=== PATIENT | female | born 1945 | race Caucasian/White ===

== ENCOUNTER → 2017-08-25 11:58 | Outpatient (CLI) | payer MEDICARE, OTHER, SELFPAY ==
[2017-08-25 13:00] LABS: Anion Gap 6 (5-15); BUN 33 mg/dL (7-18); BUN/Creat Ratio 23.6 RATIO (10-20); Calcium,Total 8.7 mg/dL (8.5-10.1); Chloride 104 mmol/L (98-107); EST Glomerular Filtration Rate 39 mL/min (>60); Est Glom Filt Rate - Afr Amer 47 mL/min (>60); Glucose 52 mg/dL (74-106); Magnesium 2.2 mg/dL (1.6-2.6); Potassium 4.4 mmol/L (3.5-5.1); Sodium Level 139 mmol/L (136-145)
== END ==
PROVIDERS: Family Provider Family Medicine; PCP Family Medicine; Visit Provider Physician Assistant Medical
DX: I25.10 Atherosclerotic heart disease of native coronary artery without angina pectoris (principal); I10 Essential (primary) hypertension; R25.2 Cramp and spasm
CPT/HCPCS: 36415; 80048; 83735

== ENCOUNTER → 2018-03-30 07:37 | Outpatient (CLI) | payer MEDICARE, OTHER, SELFPAY ==
[2018-03-30 08:43] LABS: AST(SGOT) 30 U/L (15-37); Alanine Aminotransfer ALT/SGPT 34 U/L (13-56); Albumin, Serum 3.6 g/dL (3.2-5.0); Alkaline Phosphatase 54 U/L (45-117); Cholesterol 119 mg/dL (200); Globulin 3.6 g/dL (2.2-4.2); High Density Lipoprotein 34 mg/dL; Protein, Total 7.2 g/dL (6.4-8.2); Triglycerides 209 mg/dL; Very Low Density Lipoprotein 42 mg/dL (5-40)
== END ==
PROVIDERS: Referring Provider Physician Assistant Medical; Visit Provider Physician Assistant Medical
DX: E78.5 Hyperlipidemia, unspecified (principal); Z79.899 Other long term (current) drug therapy
CPT/HCPCS: 36415; 80061; 80076

== ENCOUNTER → 2018-11-02 08:06 | Outpatient (CLI) | payer MEDICARE, OTHER, SELFPAY ==
[2018-10-20 12:55] VITALS: BMI 36.2
[2018-11-02 09:33] LABS: AST(SGOT) 28 U/L (15-37); Alanine Aminotransfer ALT/SGPT 39 U/L (13-56); Albumin, Serum 3.5 g/dL (3.2-5.0); Alkaline Phosphatase 58 U/L (45-117); Bilirubin, Direct 0.07 mg/dL (0.00-0.30); Cholesterol 125 mg/dL (200); High Density Lipoprotein 41 mg/dL; Protein, Total 7.5 g/dL (6.4-8.2); Triglycerides 167 mg/dL; Very Low Density Lipoprotein 33 mg/dL (5-40)
== END ==
PROVIDERS: Referring Provider Physician Assistant Medical; Visit Provider Physician Assistant Medical
DX: E78.5 Hyperlipidemia, unspecified (principal)
CPT/HCPCS: 36415; 80061; 80076

== ENCOUNTER → 2019-01-15 12:56 | Outpatient (CLI) | payer MEDICARE, OTHER, SELFPAY ==
[2018-10-20 12:55] VITALS: BMI 36.2
--- NOTE | 2019-01-15 12:59 | BI_ITS ---
MAMMOGRAPHY - BILATERAL SCREENING 3-D TOMOSYNTHESIS REASON FOR EXAM: Female, 73 years old. Bilateral Screening 3-D tomosynthesis PERTINENT HISTORY: No significant family history. TECHNIQUE: 2-D mammograms and 3-D Tomosynthesis of the breast (s) were performed. CAD was performed. COMPARISON: None. FINDINGS: The breast composition is almost entirely fat. Scattered benign calcifications are seen. No dense spiculated masses or suspicious microcalcifications are identified. No architectural distortion is identified. There is no skin thickening or retraction. There has been no significant change since the prior study. BI/SCREEN MAMM (CAD) W/ZACARIAS BILAT IMPRESSION: No mammographic signs of malignancy. Routine yearly mammograms recommended. ASSESSMENT CATEGORY: BIRADS Category 1: Negative. A letter regarding these results will be sent to the patient by the facility within 30 days. FOLLOW UP RECOMMENDATION: Yearly follow up mammogram recommended. (A) Approximately 10% of breast cancers are not detected by mammography. A normal mammogram should not delay biopsy of a clinically suspicious abnormality. Electronically Signed: Lavelle Cyr MD at 14:08 EDT , Service support ,
== END ==
DX: Z12.31 Encounter for screening mammogram for malignant neoplasm of breast (principal)
CPT/HCPCS: 77063; 77067

== ENCOUNTER → 2019-05-10 08:02 | Outpatient (CLI) | payer MEDICARE, OTHER, SELFPAY ==
[2018-10-20 12:55] VITALS: BMI 36.2
[2019-05-10 08:53] LABS: Hematocrit 42.3 % (37-47); Hemoglobin 13.6 g/dL (12.0-15.0); Mean Corp Hgb Conc 32.2 g/dL (32-36); Mean Corpuscular Hgb 29.3 pg (27.0-32.0); Mean Corpuscular Volume 91.2 fL (81-99); Mean Platelet Vol. 10.3 fl (6.2-12.0); Platelet Count 198 K/mm3 (150-450); RBC Distribution Width CV 14.2 % (11.6-14.6); RBC Distribution Width SD 47.3 fl (35.1-43.9); Red Blood Count 4.64 M/mm3 (4.2-5.4); White Blood Count 6.9 K/mm3 (4.4-11.0)
[2019-05-10 09:29] LABS: AST(SGOT) 24 U/L (15-37); Alanine Aminotransfer ALT/SGPT 33 U/L (13-56); Albumin, Serum 3.4 g/dL (3.2-5.0); Alkaline Phosphatase 54 U/L (45-117); Anion Gap 7 (5-15); BUN 29 mg/dL (7-18); BUN/Creat Ratio 21.5 RATIO (10-20); Bilirubin, Direct 0.09 mg/dL (0.00-0.30); Calcium,Total 8.8 mg/dL (8.5-10.1); Chloride 104 mmol/L (98-107); Cholesterol 115 mg/dL (200); Creatinine, Serum 1.35 mg/dL (0.55-1.02); EST Glomerular Filtration Rate 41 mL/min (>60); Est Glom Filt Rate - Afr Amer 49 mL/min (>60); Globulin 3.9 g/dL (2.2-4.2); Glucose 98 mg/dL (74-106); High Density Lipoprotein 33 mg/dL; Phosphorus 3.4 mg/dL (2.5-4.9); Protein, Total 7.3 g/dL (6.4-8.2); Sodium Level 141 mmol/L (136-145); Thyroid Stim Hormone (TSH) 3.63 uIU/mL (0.358-3.74); Triglycerides 177 mg/dL; Very Low Density Lipoprotein 35 mg/dL (5-40)
[2019-05-10 11:00] LABS: Vitamin D,25 Hydroxy 38.8 ng/mL (29.95-100.01)
== END ==
PROVIDERS: Family Provider Student in an Organized Health Care Education/Training Program; PCP Student in an Organized Health Care Education/Training Program; Referring Provider Nurse Practitioner Family; Visit Provider Nurse Practitioner Family
DX: I12.9 Hypertensive chronic kidney disease with stage 1 through stage 4 chronic kidney disease, or unspecified chronic kidney disease (principal); N18.3 Chronic kidney disease, stage 3 (moderate); E78.5 Hyperlipidemia, unspecified; R53.83 Other fatigue
CPT/HCPCS: 36415; 80048; 80061; 80076; 82306; 84100; 84443; 85027

== ENCOUNTER → 2019-11-09 07:35 | Outpatient (CLI) | payer MEDICARE, OTHER, SELFPAY ==
[2019-05-11 10:52] VITALS: BMI 37.6
[2019-11-09 09:22] LABS: AST(SGOT) 27 U/L (15-37); Alanine Aminotransfer ALT/SGPT 37 U/L (13-56); Albumin, Serum 3.5 g/dL (3.2-5.0); Alkaline Phosphatase 62 U/L (45-117); Cholesterol 122 mg/dL (200); Globulin 4.1 g/dL (2.2-4.2); High Density Lipoprotein 32 mg/dL; Protein, Total 7.6 g/dL (6.4-8.2); Triglycerides 239 mg/dL; Very Low Density Lipoprotein 48 mg/dL (5-40)
== END ==
PROVIDERS: PCP Student in an Organized Health Care Education/Training Program; Referring Provider Nurse Practitioner Family; Visit Provider Nurse Practitioner Family
DX: E78.00 Pure hypercholesterolemia, unspecified (principal); E78.5 Hyperlipidemia, unspecified
CPT/HCPCS: 36415; 80061; 80076

== ENCOUNTER → 2019-11-16 12:57 | Outpatient (CLI) | payer MEDICARE, OTHER, SELFPAY ==
[2019-05-11 10:52] VITALS: BMI 37.6
[2019-11-16 13:55] LABS: Hematocrit 43.6 % (37-47); Mean Corp Hgb Conc 32.1 g/dL (32-36); Mean Corpuscular Hgb 29.4 pg (27.0-32.0); Mean Corpuscular Volume 91.4 fL (81-99); Mean Platelet Vol. 10.1 fl (6.2-12.0); Platelet Count 226 K/mm3 (150-450); RBC Distribution Width CV 13.7 % (11.6-14.6); RBC Distribution Width SD 46.2 fl (35.1-43.9); Red Blood Count 4.77 M/mm3 (4.2-5.4); White Blood Count 7.8 K/mm3 (4.4-11.0)
[2019-11-16 14:00] LABS: Protein, Urine (Random) < 6.0 mg/dL (<11.9); Protein:Creat Ratio 95 mg/g CRE (0-200)
[2019-11-16 14:18] LABS: Albumin, Serum 3.3 g/dL (3.2-5.0); BUN 29 mg/dL (7-18); Calcium,Total 8.8 mg/dL (8.5-10.1); Chloride 102 mmol/L (98-107); Creatinine, Serum 1.26 mg/dL (0.55-1.02); EST Glomerular Filtration Rate 44 mL/min (>60); Est Glom Filt Rate - Afr Amer 53 mL/min (>60); Glucose 103 mg/dL (74-106); Phosphorus 3.6 mg/dL (2.5-4.9); Potassium 4.1 mmol/L (3.5-5.1); Sodium Level 138 mmol/L (136-145)
[2019-11-16 14:23] LABS: Vitamin D,25 Hydroxy 44.4 ng/mL
== END ==
PROVIDERS: PCP Student in an Organized Health Care Education/Training Program; Referring Provider Student in an Organized Health Care Education/Training Program; Visit Provider Student in an Organized Health Care Education/Training Program
DX: N18.3 Chronic kidney disease, stage 3 (moderate) (principal)
CPT/HCPCS: 36415; 80069; 82306; 82570; 83970; 84156; 85027

== ENCOUNTER → 2019-11-24 10:07 | Outpatient (CLI) | payer MEDICARE, OTHER, SELFPAY ==
[2019-05-11 10:52] VITALS: BMI 37.6
--- NOTE | 2019-11-24 10:26 | MRI_ITS ---
STUDY: MRI LUMBAR SPINE WITHOUT CONTRAST REASON FOR EXAM: Female, 74 years old. ddd, radiculopathy, RIGHT HIP PAIN and gt; LEFT PAIN TECHNIQUE: Standardized fat and water weighted pulse sequences were obtained in the sagittal and axial planes. COMPARISON: CT abdomen and pelvis with coronal and sagittal reconstructions 01/06/2017. FINDINGS: T9-T10: (Sagittal only). Normal endplates. Normal disc height and morphology. Normal central canal and bilateral intervertebral neural foramina. T10-T11: (Sagittal only). Normal endplates. Normal disc height and morphology. Normal central canal and bilateral lateral intervertebral neural foramina. T11-T12: (Sagittal only). Normal endplates. Normal disc height and morphology. Normal central canal and bilateral intervertebral neural foramina. T12-L1: (Sagittal only). Normal endplates. Normal disc height and morphology. Normal central canal and bilateral intervertebral neural foramina. Normal lumbar lordosis. There is no substantial scoliosis. Normal conus medullaris that terminates at the lower T12 vertebral body level. L1-2: Anterior marginal spurs. Modic type II degenerative vertebral marrow fatty changes underneath the vertebral endplates. Mild degenerative retrolisthesis of L1 on L2. Pronounced disc space height narrowing. Mild central canal stenosis with an AP canal diameter of 10 mm. Mild stenosis of the bilateral lateral recesses. Moderate bilateral degenerative facet arthropathy. Normal bilateral intervertebral neural foramina. Prominent right renal cyst is visible at this level. L2-3: Normal endplates. Moderate disc space height narrowing. Mild degenerative retrolisthesis of L2 on L3. Moderate central canal stenosis with an AP central diameter is 7.5 mm. Mild dorsal epidural lipomatosis. Normal bilateral lateral recesses. Moderately pronounced right degenerative facet arthropathy. Moderate left degenerative facet arthropathy. Mild stenosis of the right intervertebral neural foramen. Normal left intervertebral neural foramen. L3-4: Mild Modic type I degenerative vertebral marrow edema underneath the vertebral endplates. Moderate disc space height narrowing. Prominent posterior annular bulging disc. Moderate central canal stenosis with an AP canal diameter is 7.2 mm. Normal bilateral lateral recesses. Moderate bilateral degenerative facet arthropathy with fluid distention of the facet joints. Mild stenosis of the bilateral intervertebral neural foramina. L4-5: Modic type II degenerative vertebral marrow fatty changes underneath the vertebral endplates. Mild disc space height narrowing. Normal central canal and bilateral lateral recesses. Mild bilateral degenerative facet arthropathy. Normal bilateral intervertebral neural foramina. L5-S1: Ankylosis of the vertebral bodies. Grade 2 anterolisthesis of L5 on S1 secondary to bilateral L5 pars defects are unchanged. Moderately pronounced central canal stenosis with an AP canal diameter of 5.3 mm. Normal bilateral lateral recesses. Moderate bilateral degenerative facet arthropathy. Severe stenosis of the bilateral intervertebral neural foramina. Normal visualized sacral ala. Normal visualized paraspinous soft tissue structures. MRI/Spine Lumbar (Routine) IMPRESSION: 1. Severe stenosis of the bilateral L5-S1 intervertebral neural foramina, grade 2 anterolisthesis of L5 on S1, bilateral L5 pars defects, ankylosis of the vertebral bodies and moderately pronounced central canal stenosis with an AP canal diameter of 5.3 mm. 2. Moderate central canal stenosis at L3-L4 disc level with an AP canal diameter 7.2 mm, moderate disc space height narrowing, moderate bilateral degenerative facet arthropathy with fluid distention of the facet joints, mild stenosis of the bilateral intervertebral neural foramina and mild Modic type I degenerative vertebral marrow edema underneath the vertebral endplates. 3. Moderate central canal stenosis at L2-L3 disc level with an AP canal diameter of 7.5 mm, mild degenerative retrolisthesis of L2 on L3, moderately pronounced right degenerative facet arthropathy and mild stenosis of the right intervertebral neural foramen. 4. Mild central canal stenosis at the L1-L2 disc level with an AP canal diameter of 10 mm, mild degenerative retrolisthesis of L1 on L2, pronounced L1-L2 disc space height narrowing and moderate bilateral degenerative facet arthropathy. 5. No MRI evidence of lumbar extruded disc fragment. 6. Prominent right renal cyst. 7. No significant interval change when compared to CT of the abdomen and pelvis without contrast 01/06/2017. Electronically Signed: Yobani Mayers MD at 12:20 EDT , Service support ,
== END ==
PROVIDERS: PCP Student in an Organized Health Care Education/Training Program; Referring Provider Anesthesiology Pain Medicine; Visit Provider Anesthesiology Pain Medicine
DX: M51.37 Other intervertebral disc degeneration, lumbosacral region (principal); M54.17 Radiculopathy, lumbosacral region
CPT/HCPCS: 72148

== ENCOUNTER → 2019-12-13 05:55 | Outpatient (CLI) | payer MEDICARE, OTHER, SELFPAY ==
[2019-05-11 10:52] VITALS: BMI 37.6
--- NOTE | 2019-12-13 11:36 | STRESSREP ---
Stress Test Report Pharmacologic myocardial perfusion stress test. 74-year-old lady with a history coronary artery disease status post coronary artery bypass surgery. Stress protocol: Resting EKG demonstrates sinus rhythm with a rate of 61 bpm and a right bundle branch block. 0.4 mg of regadenoson was infused per usual protocol followed by Intravenous saline flush injection continuous EKG monitoring was performed. The maximum heart rate attained was 88 bpm which was 60% of maximum predicted heart rate the maximum workload was 1 metabolic equivalent. At rest there were no ST or T wave changes noted to suggest abnormal flow reserve at peak infusion nonspecific ST-T wave changes were noted with no meet the criteria for ischemia. The resting blood pressure was 134/68 with a final blood pressure of 138/76. Myocardial perfusion protocol. 11.8 mCi of technetium 99m sestamibi was injected at rest. 0.4 mg of regadenoson was infused per usual protocol peak infusion 36.0 mCi of technetium 99m sestamibi was injected stress images were obtained stress and rest images were reconstructed and compared in the short axis vertical long horizontal long axis. Gated images were also obtained Perfusion SPECT analysis: Review of the images demonstrate normal uptake of tracer noted in all areas of the myocardium. The rest images similar demonstrate normal uptake of tracer noted in all areas of the myocardium. No reversibility is noted suggest ischemia no previous infarct is noted. Gated SPECT analysis: The gated ejection fraction is 84%. Conclusion: Normal pharmacologic myocardial perfusion stress test. Preserved ejection fraction.
== END ==
PROVIDERS: PCP Student in an Organized Health Care Education/Training Program; Referring Provider Internal Medicine Cardiovascular Disease; Visit Provider Internal Medicine Cardiovascular Disease
DX: R07.9 Chest pain, unspecified (principal); I25.10 Atherosclerotic heart disease of native coronary artery without angina pectoris; Z95.1 Presence of aortocoronary bypass graft; I10 Essential (primary) hypertension; E78.5 Hyperlipidemia, unspecified; I45.2 Bifascicular block
CPT/HCPCS: 78452; 93017; A9500; A4216; J2785

== ENCOUNTER → 2020-02-07 | Outpatient (CLI) | payer MEDICARE, OTHER, SELFPAY ==
[2019-05-11 10:52] VITALS: BMI 37.6
--- NOTE | 2020-02-07 07:43 | US_ITS ---
STUDY: ULTRASOUND TRANSVAGINAL CLINICAL: Female, 74 years old. Pelvic pain and fullness TECHNIQUE: Transvaginal COMPARISON: None. FINDINGS: Normal uterine size measuring 8.7 cm in maximal craniocaudal dimension. Grad Intern notes at least 4 fibroids. Some are calcified. The largest measures 2.5 x 2.4 x 1.4 cm. Normal endometrial thickness measuring 6.7 mm. There are no endometrial masses, and there is no fluid in the endometrial cavity. This is abnormal and needs further investigation with biopsy to exclude endometrial carcinoma. Normal uterine cervix. Neither ovary visualized. There is no free fluid in the pelvis. US/Transvaginal Non- IMPRESSION: Abnormally thickened endometrium at 6.7 mm. Biopsy is recommended for further evaluation Grad Intern notes at least 4 uterine fibroids. Largest measures 2.5 x 2.4 x 1.4 cm. No suspicious cystic mass or free fluid Electronically Signed: Lavelle Cyr MD at 10:22 EDT , Service support ,
== END | disposition home or self-care (01) ==
LOC: US 07:41
PROVIDERS: PCP Student in an Organized Health Care Education/Training Program; Referring Provider Student in an Organized Health Care Education/Training Program; Visit Provider Student in an Organized Health Care Education/Training Program
DX: R22.9 Localized swelling, mass and lump, unspecified (principal)
CPT/HCPCS: 76830

== ENCOUNTER 2020-04-10 12:41 | Day surgery (SDC) | payer MEDICARE, OTHER, SELFPAY ==
[2019-05-11 10:52] VITALS: BMI 37.6
[2020-04-10] VITALS (7 sets, daily range): BP systolic 130–146; BP diastolic 59–80; PULSE 55–59; RESP 16; TEMP 36.1–37; O2SAT 95–98; BMI 37.6
[2020-04-10] MEDS: Lactated Ringers 1,000 ML 100 ML IV (13:13)
[2020-04-10] MEDS: Cefazolin 2 GM in 0.9% Normal Saline 100 ML IV (14:11)
--- NOTE | 2020-04-10 14:15 | RAD_ITS ---
STUDY: X-RAY - LUMBAR SPINE REASON FOR EXAM: Female, 74 years old. Spinal cord stimulator. TECHNIQUE: 7 intraoperative view(s) of the lumbar spine were obtained. COMPARISON: MRI of the lumbar spine, 11/24/2019. FINDINGS: Fluoroscopic guidance was provided during the placement of a spinal cord stimulator in the OR. The stimulator leads appear to lie anterior to the T7-T9 vertebrae. RAD/Lumbar Spine 2 or 3 Views IMPRESSION: Fluoroscopic guidance provided during placement of the spinal cord stimulator in the OR. Electronically Signed: Jose De Jesus Benito DO at 16:28 EDT Tel [phone], Service support ,
[2020-04-10] MEDS: Bupivacaine 0.25% 30 ML Vial (14:31)
[2020-04-10] MEDS: Bacitracin 500 UNITS/GM PACKET (15:55)
--- NOTE | 2020-04-10 16:58 | OP.PCM_ITS ---
Report of Operation Date of Procedure: 04/10/20 Description of Surgical Findings:: Pre-Operative Diagnosis: Lumbosacral radiculopathy, lumbosacral degenerative disc disease, lumbosacral spinal stenosis. Post-Operative Diagnosis: Lumbosacral radiculopathy, lumbosacral degenerative disc disease, lumbosacral spinal stenosis. Surgery/Procedure Performed:: 1. Spinal cord stimulator thoracolumbar leads placement x2 #2 spinal cord stimulator Medtronic intellus generator placement #3 spinal cord stimulator generator pocket creation at the right gluteal region #4 spinal cord stimulator simple programming, 5-intraoperative fluoroscopic interpretation Description of Surgical Findings:: PROCEDURES: 1. Spinal cord stimulator thoracolumbar leads placement x2 #2 spinal cord stimulator Medtronic intellus generator placement #3 spinal cord stimulator generator pocket creation at the right gluteal region #4 spinal cord stimulator simple programming 5-intraoperative fluoroscopic interpretation ANESTHESIA: MAC COMPLICATIONS: None BLOOD LOSS: Minimal <50 CC Implanted device: Spinal cord stimulator lead [id number] lot number [id number], lead #2 lot number [id number], Medtronic spinal cord stimulator generator intel day serial number [id number] PROCEDURE IN DETAIL: History and physical today was reviewed. Risks and benefits of procedure explained. The patient understood, agreed to procedure, informed consent was obtained. IV inserted per routine protocol. The patient was taken to the operating room, placed in the prone position with a pillow positioned underneath the abdomen. A 2 g of Ancef IV piggyback was infused per anesthesia. The lower back and right gluteal area was prepped and draped in a sterile fashion using iodine x3. The C-arm was brought in position for AP view at the L1-2vertebral bodies under direct visualization fluoroscopy on a true AP view the T12-L1 interlaminar space was identified skin and subcutaneous tissue and size approximately 10 cc of a mix of 2% lidocaine and 0.25% Marcaine using a 25-gauge regular needle followed by a 25-gauge 6 inch spinal needle towards the interlaminar space at L1-L2, the skin and subcutaneous tissue were then anesthetized and using an 11-gauge blade was then taken down to the skin and subcutaneous tissue using a 14-gauge 6 inch Touhy needle provided by the Placemeter kit the needle was passed through the skin towards the interlaminar space at L1-2 and a paramedian approach the needle was then advanced under direct visualization fluoroscopy towards the interlaminar space at L1-2 [id number] technique was then carried to air towards the interlaminar space at T12-L1 once the tip of the needle was in the epidural space and loss of resistance was encountered to air and after confirmation of AP as well as oblique view of the spinal cord stimulator lead was then advanced under direct visualization fluoroscopy to be at the tip of the lead at T8 and the bottom of the lead around mid T10 after confirmation of AP as well as lateral view to confirm correct placement of the lead in the posterior compartment of the epidural space the previous procedure was then repeated to a level above at T12- L1 interlaminar space the second lead was then inserted under direct visualization with fluoroscopy to be at the mid T7 and mid T10 area the leads were were then connected to the external neurostimulator and patient was then awakened to confirm satisfactory coverage of the painful area once satisfactory coverage was then achieved the stylette of each needle was then removed and the skin and subcutaneous tissue on to the left of the paramedian needles was then taken anesthetized with a total of 10 cc of the previous mixture of 0.25% Marcaine and 2% lidocaine using a 25-gauge regular needle the incision was then taken down through the skin and subcutaneous tissue towards the fascia making sure hemostasis was then maintained via cautery, the spinal cord stimulator leads were then passed through the above incision and secured using the bi-wing and sutured down with a 2-0 nylon to the fascia at that level the spinal cord stimulator leads were then tunneled via a tunneler provided by the [employer] kit towards the previously incised spinal cord stimulator battery at the right gluteal region skin and subcutaneous tissue were anesthetized with approximately 10 cc of a mix of 2% lidocaine and 0.25% Marcaine using a 25 gauge regular needle, skin and subcutaneous tissue was then taken down with the 11-gauge blade hemostasis was maintained with Bovie and direct pressure the incision was then taken down to the fascia and the battery was then secured with the 2-0 silk sutures that were the spinal cord stimulator leads the upper lead was then marked the new until spinal cord stimulator battery was then provided Via Placemeter kit the battery was then reattached of the spinal cord stimulator make ensure that the top lead is attached to the top position from 0-7 electrodes and the bottom from 8-15 electrodes once impedance was then checked to be in the proper average number the intellus battery was then inserted into the pocket and impedance with when checked again the pocket was then inspected to confirm hemostasis in place, the intellus battery was then secured to the fascia using a 2-0 silk to the upper and lower eyes of the battery confirming an upward writing of the intellus facing posterior, once complete confirmation the battery was then placed in the position and the the mid paramedian and the gluteal incisions were then closed primarily through a 2-0 Vicryl for the deep layer followed by 3-0 Vicryl in a interrupted fashion followed by a 4-0 chromic to the skin, hemostasis was then maintained during the procedure the skin was then covered with a Steri-Strips and bacitracin patient was then returned into the supine position in a stable condition and returned to recovery in a stable condition patient experienced no signs or symptoms of intrathecal or intravascular injection patient experienced no paresthesia the procedure was completed without any apparent difficulty any complication the patient appeared to tolerate well, motor as well as sensory exam was unchanged from prior to the procedure. ESTIMATED BLOOD LOSS: Minimal less than 50 mL ASSESSMENT AND PLAN: This is a 74-year-old female with lumbosacral radiculopathy lumbosacral degenerative disc disease lumbosacral spinal stenosis, status post 1. Spinal cord stimulator thoracolumbar leads placement x2 #2 spinal cord stimulator Medtronic intellus generator placement #3 spinal cord stimulator generator pocket creation at the right gluteal region #4 spinal cord stimulator simple programming, 5-intraoperative fluoroscopic interpretation patient will continue her current medications a prescription was provided to the patient for Keflex 500 mg 1 p.o. every 8 hours for 7 days postop instruction were given in writing to the patient as well as verbally and in writing to her . the patient will follow approximately 1 week for reevaluation.
== END 2020-04-10 17:36 | disposition home or self-care (01) ==
LOC: SDC 12:41 → AC 12:42
PROVIDERS: Anesthesiology; PCP Student in an Organized Health Care Education/Training Program; Referring Provider Anesthesiology Pain Medicine; Visit Provider Anesthesiology Pain Medicine
PROC: (CPT 63685; principal; 2020-04-10 13:45)
DX: M51.17 Intervertebral disc disorders with radiculopathy, lumbosacral region (principal); M48.07 Spinal stenosis, lumbosacral region; I25.10 Atherosclerotic heart disease of native coronary artery without angina pectoris; I10 Essential (primary) hypertension; E78.00 Pure hypercholesterolemia, unspecified; K21.9 Gastro-esophageal reflux disease without esophagitis; G47.30 Sleep apnea, unspecified; Z95.1 Presence of aortocoronary bypass graft; Z79.82 Long term (current) use of aspirin; Z79.899 Other long term (current) drug therapy; Z91.19 Patient's noncompliance with other medical treatment and regimen; Z20.828 Contact with and (suspected) exposure to other viral communicable diseases
CPT/HCPCS: 01991; 63650 ×2; 63685; 72100; 76000; 87635; C1778; C1820; C9803; J7120; J2405; U0003

== ENCOUNTER → 2020-05-08 10:02 | Outpatient (CLI) | payer MEDICARE, OTHER, SELFPAY ==
[2020-04-10 13:04] VITALS: BMI 37.6
--- NOTE | 2020-05-08 09:55 | BI_ITS ---
MAMMOGRAPHY - BILATERAL SCREENING REASON FOR EXAM: Female, 74 years old. Routine annual screening examination. PERTINENT HISTORY: Non-contributory. TECHNIQUE: Digital bilateral breast zacarias (3D mammographic acquisition) in the CC and MLO projections. 2-D mediolateral oblique (MLO) and craniocaudad (CC) views of both breasts were obtained. CAD: Full Field Digital Mammography with Computer Added Detection was performed. COMPARISON: Comparison is made with prior study dated 01/15/2019 and 07/30/2016. FINDINGS: Breast Composition: The breasts are almost entirely fatty. There are no dominant masses or suspicious calcifications. Stable scattered microcalcifications in the upper outer quadrant of the left breast. No other significant abnormalities are identified. There has been no significant change since the prior study. BI/SCREEN MAMM (CAD) W/ZACARIAS BILAT IMPRESSION: Stable bilateral screening mammogram. Yearly follow-up mammogram recommended. (A) ASSESSMENT CATEGORY: BIRADS Category 2: Benign. A letter regarding these results will be sent to the patient by the facility within 30 days. Approximately 10% of breast cancers are not detected by mammography. A normal mammogram should not delay biopsy of a clinically suspicious abnormality. [id number] Electronically Signed: Ortiz Waldron, at 11:06 EST , Service support ,
== END ==
PROVIDERS: PCP Student in an Organized Health Care Education/Training Program; Referring Provider Student in an Organized Health Care Education/Training Program; Visit Provider Student in an Organized Health Care Education/Training Program
DX: Z12.31 Encounter for screening mammogram for malignant neoplasm of breast (principal)
CPT/HCPCS: 77063; 77067

== ENCOUNTER 2020-06-08 10:47 | Day surgery (SDC) | payer MEDICARE, OTHER, SELFPAY ==
[2020-04-10 13:04] VITALS: BMI 37.6
[2020-05-09 08:41] VITALS: BMI 37.8
[2020-06-02 11:41] LABS: Hematocrit 43.1 % (37-47); Hemoglobin 13.9 g/dL (12.0-15.0); Mean Corp Hgb Conc 32.3 g/dL (32-36); Mean Corpuscular Volume 89.8 fL (81-99); Platelet Count 239 K/mm3 (150-450); RBC Distribution Width CV 13.8 % (11.6-14.6); RBC Distribution Width SD 45.5 fl (35.1-43.9); White Blood Count 8.7 K/mm3 (4.4-11.0)
[2020-06-02 12:09] LABS: Anion Gap 5 (5-15); BUN 27 mg/dL (7-18); BUN/Creat Ratio 20.6 RATIO (10-20); Calcium,Total 9.1 mg/dL (8.5-10.1); Chloride 104 mmol/L (98-107); Creatinine, Serum 1.31 mg/dL (0.55-1.02); EST Glomerular Filtration Rate 42 mL/min (>60); Est Glom Filt Rate - Afr Amer 51 mL/min (>60); Glucose 87 mg/dL (74-106); Potassium 4.1 mmol/L (3.5-5.1); Sodium Level 138 mmol/L (136-145)
[2020-06-08] VITALS (7 sets, daily range): BP systolic 111–158; BP diastolic 57–87; PULSE 56–67; RESP 16–18; TEMP 36.2–36.7; O2SAT 95–97; BMI 36.1
--- NOTE | 2020-06-08 06:54 | HP.PCM_ITS ---
History and Physical Date of Admission: 06/08/20 Lakisha Tran, a 74 year old female 2 0 0 0 2, presents for Hyster oscopy, D on June 08, 2020 at 12:30. Patient had incidental finding of thickened endometrial stripe on pelvic ultrasound of 6.7 mm. No post menopausal bleeding. Attempted endometrial biopsy in office, could not be completed due to cervical stenosis. MEDICAL HISTORY: 1. Hypertension 2. Stage III kidney disease 3. GERD 4. Obstructive Sleep Apnea 5. Obesity 6. Hyperlipidemia 7. Three vessel CAD, stress test normal summer 2019 8. Osteoarthritis MEDICATIONS HISTORY: 1. metoprolol tartrate 25 mg tablet, bid 2. Multi For Her 18 mg iron-600 mcg capsule, daily 3. aspirin 81 mg tablet,delayed release, One tablet by mouth once daily 4. gabapentin 100 mg capsule, 2 capsules by mouth 3 x daily 5. hydrochlorothiazide 25 mg tablet, One tablet by mouth once daily 6. omeprazole 40 mg capsule,delayed release, One capsule by mouth once daily 7. rosuvastatin 40 mg tablet, One tablet by mouth once daily ALLERGIES: Bactrim, Hives, Sulfonamides, Lipitor and Leg cramps SOCIAL HISTORY: Alcohol Use - drinks occasionally Smoking - denies smoking Drus Use - denies FAMILY HISTORY: Family history of DM II and Heart Disease. MENSTRUAL HISTORY POSTMENOPAUSAL, Age Onset Menarche - 9 PAST PREGNANCIES: Total Pregnancies - 2; Full Term Pregnancies - 2; Premature - 0; Abortions, Induced - 0; Abortions, Spontaneous - 0; Ectopics - 0; Multiple Births - 0; Living Children - 2 SURGICAL HISTORY: 1. CARPAL TUNNEL LEFT WRIST ; - 2. x2 ; - 3. Triple Bypass, 2007 ; - 4. 06/19/2005 rotator cuff ; - 5. 04/10/2020 spinal cord stimulator implant ; Erick - Review of Systems: GENERAL - Denies fever, or chills SKIN - Denies skin changes EYES - wears eye glasses EARS - Denies difficulty hearing NOSE - Denies nasal congestion or bleeding MOUTH - Denies sore throat or difficulty swallowing NECK - Denies pain or swelling RESPIRATORY - Denies shortness of breath or wheezing CARDIOVASCULAR - Denies palpitations or chest pain GASTROINTESTINAL - Denies nausea, vomiting, diarrhea, constipation GENITOURINARY - thickened EM MUSCULOSKELETAL - Denies joint or muscle pain NEUROLOGICAL - Denies localized numbness or weakness PSYCHIATRIC - Denies depression or anxiety ENDOCRINE - Denies heat or cold intolerance, weight loss or gain HEMATO-IMMUNOLOGIC - Denies excesive bleeding with cuts PHYSICAL EXAM BP- 134/70 Sitting, Right arm, regular cuff Weight- 181.37086 lbs Height- 58.75 inch BMI:36.95 CONSTITUTIONAL - NAD, well nourished, and well developed SKIN - No rash, lesions, or ulcers HEENT - Normocephalic, PERRLA, EOMI NECK - No nodes, no nuchal rigidity and thyroid normal size and texture LYMPH NODES - Palpation of lymph nodes in neck and groins within normal limits LUNGS - CTA x2 without wheezes, crackles or rales CARDIAC - Regular rate and rhythm without rubs, murmurs, or gallops ABDOMEN - Without hepatosplenomegaly, distention, masses, rebound, or guarding; normal bowel sounds; no hernias EXTREMITIES - No edema or calf tenderness NEUROLOGICAL - Cranial nerves II-XII grossly intact PSYCHIATRIC - A and O to time, place, person, mood and affect External Genitial Vagina - non-tender without lesions Urethra/Urethral Meatus - non-tender Bladder - non-tender Vagina - atrophic vagina Cervix - stenotic cervical os ASSESSMENT/PLAN: 1. Abnormal Findings On Diagnostic Imaging Of Other Specified Body Structures ES on incidental US of 6.7 mm. No post menopausal bleeding. Attempted EMB to rule out hyperplasia or endometrial cancer, unable to complete today due to cervical stenosis Plan for hysteroscopy, dilation and curettage. R/B/A discussed. Risks include but are not limited to: risk of bleeding to the point of transfusion, infection, injury to surrounding tissue (bowel/bladder requiring prolonged catheter use), uterine perforation, VTE, ICU admission. Pt has multiple medical comorbidities: has had pcp/cardio clearance. Hx of CABG, severe CARMELLA, HTN, HL. To continue all medications preoperatively 2. Stricture And Stenosis Of Cervix Uteri Cervical stenosis secondary to atrophy
[2020-06-08] MEDS: Lactated Ringers 1,000 ML 100 ML IV (11:30)
--- NOTE | 2020-06-08 12:35 | EMB_PTH ---
PATIENT: PIPPA NOEL [place] [facility] [place][id number] AGE/SX: 74/F ROOM: RE06/08/[address]: Dr. Rut Hoang DO : 1945 BED: DIS: 06/08/2020 SPEC #: [id number] RECD: 06/09/20 07:39 STATUS: NAVIN REJanice #: [id number] JAGJIT: 06/08/20 12:[address]: Rut Hoang DEPT: SURGICAL PATHOLOGY RECD BY: Giselle Wen ENTERED: 06/09/20 09:16 SP TYPE: ENDOM BX/C ERASTO DR: Dr. Vicente Simon DO Tissues: Endometrium, NOS Procedures: Surgery Specimen Level IV HEADER OPERATION: Hysterectomy, dilation and curettage PRE-OP DIAGNOSIS: Thickened endometrial stripe TISSUE SUBMITTED: Endometrial curettings MICROSCOPIC DIAGNOSIS Endometrial curettings: Strips of benign endometrial epithelium, consistent with atrophic endometrium. Numerous fragments of benign ectocervical epithelium, scant fragment of benign endocervical epithelium, blood and mucous. See comment. JESSICA:colten 06/12/20 COMMENT The specimen predominantly consists of blood and mucous. MICROSCOPIC DESCRIPTION Slides are reviewed. GROSS DESCRIPTION Received in fixative is one container labeled with the patient's name and designated endometrial curettings. The specimen consists of multiple fragments of hemorrhagic soft tissue mixed with mucoid tissue that in aggregate measure 5 x 3 x 0.3 cm. The entire specimen is submitted in two cassettes. / JESSICA:colten 06/09/20 TC:5 CPT: 28737
--- NOTE | 2020-06-08 14:09 | OP.PCM_ITS ---
Report of Operation Date of Procedure: 06/08/20 Pre-Operative Diagnosis: Thickened endometrial stripe Post-Operative Diagnosis: Thickened endometrial stripe Surgery/Procedure Performed:: Hysteroscopy, dilation and curettage, repair of cervical laceration Description of Surgical Findings:: Normal-appearing external genitalia. Atrophic vagina. Stenotic cervix. Normal-appearing endometrial cavity. Type of Anesthesia:: MAC Specimen's removed: Endometrial curettings Estimated Blood Loss (mL): 10 cc Fluids Replaced: 800 cc Description of Procedure: Patient was taken to the operating room and placed under MAC anesthesia. Patient placed in the dorsal lithotomy position and prepped and draped in usual sterile fashion. Bladder drained 300 cc clear urine. Weighted speculum placed in posterior vagina and Little retractor used to visualize the cervix. Anterior lip of cervix grasped with single-tooth tenaculum. Cervix attempted to be dilated, stenotic cervix noted. At this time tenaculum was removed and Allis clamp was utilized. Hemostat utilized to dilate cervix. Cervix then sequentially dilated. Hysteroscope placed through cervical canal and endometrial cavity inspected. No fibroids or polyps noted. Curettage completed a 360 degree manner. Laceration to the anterior portion of the cervix noted, re paired with a single [id number] stitch. This was hemostatic. At the end of the procedure all needle, lap, sponge counts correct x3.
--- NOTE | 2020-06-08 14:10 | DCINST_ITS ---
Discharge Activity: Return to Normal Activity, May Shower May resume sexual activity in: 2 weeks Call your doctor if you observe: Fever of 101 or Higher, Inability to urinate, Inability to have a bowel movement, Using more than one pad per hour, Shortness of breath Allergies/Adverse Reactions: Allergies sulfamethoxazole [From Bactrim] Allergy (Verified 06/08/20 11:05) Rash trimethoprim [From Bactrim] Allergy (Verified 06/08/20 11:05) Rash JESSICA Inhibitors Adverse Reaction (Severe, Verified 06/08/20 11:05) Cough, non productive atorvastatin [From Lipitor] Adverse Reaction (Severe, Verified 06/08/20 11:05) Myalgias Medications to take at Discharge Multivitamin [Daily Multiple Vitamin] 1 ea PO DAILY 01/06/17 Omeprazole [Prilosec] 40 mg PO DAILY 01/06/17 RX: Aspirin 81 mg PO DAILY 01/06/17 nitroglycerin 0.4 mg sublingual tablet 0.4 mg SUBLINGUAL Q5M PRN #25 tab 02/11/18 gabapentin 100 mg capsule 200 mg PO TID cap 05/11/19 metoprolol tartrate 25 mg tablet 25 mg PO BID #180 tab 11/24/19 hydrochlorothiazide 12.5 mg capsule 12.5 mg PO DAILY #90 cap 05/09/20 rosuvastatin 20 mg tablet 20 mg PO DAILY 05/09/20 Primary Care Physician: Vicente Simon DO [Primary Care Provider] - Test Results: Test results from this visit will be discussed in further detail at your follow- up appointment, if applicable. Please Follow Up With: Rut Hoang DO When: 2 weeks
== END 2020-06-08 16:05 | disposition home or self-care (01) ==
PROVIDERS: PCP Student in an Organized Health Care Education/Training Program; Referring Provider Student in an Organized Health Care Education/Training Program; Visit Provider Student in an Organized Health Care Education/Training Program
PROC: 0UDB8ZZ Extraction of Endometrium, Via Natural or Artificial Opening Endoscopic (ICD-10-PCS; CPT 58558; principal; 2020-06-08 12:25)
DX: R93.89 Abnormal findings on diagnostic imaging of other specified body structures (principal); N88.2 Stricture and stenosis of cervix uteri; N99.71 Accidental puncture and laceration of a genitourinary system organ or structure during a genitourinary system procedure; I25.10 Atherosclerotic heart disease of native coronary artery without angina pectoris; I45.10 Unspecified right bundle-branch block; I12.9 Hypertensive chronic kidney disease with stage 1 through stage 4 chronic kidney disease, or unspecified chronic kidney disease; N18.30 Chronic kidney disease, stage 3 unspecified; K21.9 Gastro-esophageal reflux disease without esophagitis; E78.5 Hyperlipidemia, unspecified; G47.33 Obstructive sleep apnea (adult) (pediatric); M19.90 Unspecified osteoarthritis, unspecified site; E66.9 Obesity, unspecified; Z68.36 Body mass index [BMI] 36.0-36.9, adult; Z95.1 Presence of aortocoronary bypass graft; Z88.2 Allergy status to sulfonamides; Z88.1 Allergy status to other antibiotic agents; Z79.82 Long term (current) use of aspirin; Z79.899 Other long term (current) drug therapy; Z20.828 Contact with and (suspected) exposure to other viral communicable diseases; Z91.19 Patient's noncompliance with other medical treatment and regimen
CPT/HCPCS: 00952; 57720; 58558; 36415; 80048; 85027; 86850; 86900; 86901; 87426; 88305; C9803; J7120

== ENCOUNTER → 2020-09-06 10:55 | Outpatient (CLI) | payer MEDICARE, OTHER, SELFPAY ==
[2020-08-30 12:45] VITALS: BMI 37.4
--- NOTE | 2020-09-06 10:58 | ECHOD_ITS ---
Reason For Study: Chest Pain Procedure This was a 2D Doppler, Color Flow transthoracic echocardiogram. The study was technically difficult. Contrast injection was performed. Exam performed in department. Left Ventricle Normal LV size. Mild concentric left ventricular hypertrophy. Left ventricular systolic function is normal. The estimated ejection fraction is 65 %. Stage 1 diastolic dysfunction. No regional wall motion abnormalities noted. Right Ventricle Normal RV size. Normal systolic function. Atria Normal left atrium. Normal right atrium. Mitral Valve There is moderate mitral annular calcification. Tricuspid Valve Normal tricuspid valve. Mild (1+) tricuspid valve insufficiency. Pulmonary artery systolic pressure is 28 mmHg. Aortic Valve Trisinus/trileaflet aortic valve. Mild focal aortic valve calcification. Pulmonic Valve Normal pulmonic valve. Great Vessels Normal aortic root. The pulmonary artery is normal size. Normal inferior vena cava. Pericardium/Pleural No pericardial effusion. Medication 22 gauge I.V. with prn adaptor inserted into right arm. Diluted definity 2ml given slow IV push to enhance endocardial definition. MMode/2D Measurements & Calculations LVIDd: 3.9 cm IVSd: 1.2 cm Ao root diam: 3.5 cm LVIDs: 2.1 cm LVPWd: 1.2 cm LA dimension: 3.6 cm RVDd: 3.7 cm FS: 47.2 % LAV(MOD-bp): 54.4 ml LA A4 area: 19.6 cm2 RA A4 area: 12.9 cm2 LAV(MOD-bp) Indexed: 31.3 ml/m2 LAV(MOD-sp2): 50.6 ml LAV(MOD-sp4): 57.6 ml Time Measurements MV dec time: 0.33 sec Doppler Measurements & Calculations MV E max saúl: 81.4 cm/sec Lat Peak E' Saúl: 7.0 cm/sec Med Peak E' Saúl: 4.3 cm/sec MV A max saúl: 103.0 cm/sec E/E' lat: 11.7 E/E' med: 19.1 MV E/A: 0.79 MV V2 max: 102.6 cm/sec MV P1/2t max saúl: 84.6 cm/sec Ao V2 max: 105.3 cm/sec MV max P.2 mmHg MV P1/2t: 117.0 msec Ao max P.4 mmHg MV V2 mean: 48.0 cm/sec MV dec slope: 212.0 cm/sec2 MV mean P.2 mmHg MV V2 VTI: 35.7 cm MVA(P1/2t): 1.9 cm2 LV V1 max: 82.5 cm/sec PA V2 max: 88.3 cm/sec TR max saúl: 245.0 cm/sec LV V1 max P.7 mmHg TR max P.0 mmHg Interpretation Summary Normal LV size. Mild concentric left ventricular hypertrophy. Left ventricular systolic function is normal. The estimated ejection fraction is 65 %. Stage 1 diastolic dysfunction. Contrast injection was performed. Ordering Physician: Rivera Dan Referring Physician: Vicente Simon Performed By: Jon Fournier RCS
== END ==
PROVIDERS: PCP Student in an Organized Health Care Education/Training Program; Referring Provider Internal Medicine Cardiovascular Disease; Visit Provider Internal Medicine Cardiovascular Disease
DX: R07.9 Chest pain, unspecified (principal)
CPT/HCPCS: 93306; Q9957; A4216; C8929

== ENCOUNTER 2020-09-11 07:49 | Day surgery (SDC) | payer MEDICARE, OTHER, SELFPAY ==
[2020-08-30 12:45] VITALS: BMI 37.4
--- NOTE | 2020-09-01 13:20 | RAD_ITS ---
INDICATION: cad EXAMINATION/TECHNIQUE: X-RAY - XR Chest 2 Views COMPARISON: None. FINDINGS: Median sternotomy wires present. Neural stimulator present. The lungs are clear. Tortuous and calcified thoracic aorta. The heart is not enlarged. No pleural effusion or pneumothorax. Senescent changes of the bones. RAD/Chest PA and Lateral IMPRESSION: No acute radiographic abnormalities. Electronically Signed: Kameron Mcginnis MD at 21:41 EST Tel , Service support ,
[2020-09-01 15:42] LABS: Absolute Lymphocyte Count 2.17 X10^3/uL (0.83-4.51); Absolute Neutrophil Count 5.3 X10^3/uL (2.0-7.7); Basophil# 0.02 X10^3/uL; Basophil% 0.2 % (0-1); Eosinophil# 0.17 X10^3/uL; Hematocrit 43.1 % (37-47); Hemoglobin 13.8 g/dL (12.0-15.0); Lymphocyte # 2.17 X10^3/ul (4.0); Lymphocyte % 25.5 % (19-41); Mean Corpuscular Volume 90.5 fL (81-99); Mean Platelet Vol. 10.4 fl (6.2-12.0); Monocyte# 0.85 X10^3/uL; NRBC Flagged by Analyzer 0 % (0-5); Neutrophil # 5.27 X10^3/uL (2.7-7.7); Neutrophil % 62.1 % (47-70); Platelet Count 217 K/mm3 (150-450); RBC Distribution Width CV 14.4 % (11.6-14.6); RBC Distribution Width SD 47.5 fl (35.1-43.9); Red Blood Count 4.76 M/mm3 (4.2-5.4); White Blood Count 8.5 K/mm3 (4.4-11.0)
[2020-09-01 15:53] LABS: Anion Gap 8 (5-15); BUN 30 mg/dL (7-18); BUN/Creat Ratio 23.3 RATIO (10-20); Calcium,Total 8.9 mg/dL (8.5-10.1); Chloride 103 mmol/L (98-107); Creatinine, Serum 1.29 mg/dL (0.55-1.02); EST Glomerular Filtration Rate 43 mL/min (>60); Est Glom Filt Rate - Afr Amer 52 mL/min (>60); Glucose 95 mg/dL (74-106); Potassium 4.1 mmol/L (3.5-5.1); Sodium Level 138 mmol/L (136-145)
[2020-09-08 08:04] VITALS: BMI 37.4
[2020-09-11] VITALS (17 sets, daily range): BP systolic 102–162; BP diastolic 43–74; PULSE 55–71; RESP 14–18; TEMP 35.7–36.6; O2SAT 93–97; BMI 39.0
--- NOTE | 2020-09-11 11:01 | CL.D_ITS ---
Patient Name: PIPPA NOEL Study Date: 09/11/2020 Performing: Rivera Dan MD Ht: 57.87 inches 147 cm : 1945 Wt: 178.57 lbs 81 kg Age: 75 Gender: female BSA: 1.73 PROCEDURE(S) PERFORMED [id number]/LV/CABG CLINICAL PROFILE AND INDICATIONS Indications: Suspected CAD Heart Failure: None Stress/Imaging Stress/Image Study Performed: No CAD Presentations: Unstable angina. 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 RECOMMENDATIONS Referred for immediate PCI DESCRIPTION OF PROCEDURE The patient arrived to the procedure lab. The risks and benefits of the procedure as well as a full d escription of our services here and current unavailability of surgical backup were fully explained to the patient and/or their significant other prior to the catheterization. The Timeout was completed, verifying the correct patient and procedure. The patient's procedural site was prepped and draped in the usual fashion. Local anesthetic was given subcutaneously to left radial region with Lidocaine 2%. Local anesthetic was given subcutaneously to right groin region with Lidocaine 2%. Using a modified Seldinger technique, arterial access was obtained via the left radial artery, a 6Fr sheath was insert ed., arterial access was obtained via the right femoral artery, a 5Fr sheath was inserted. Left Ghanshyam nary Artery selective angiography was performed in multiple views using a 5 Fr. JL4 catheter. Right C oronary Artery selective angiography was then performed in multiple views using a 5 Fr. JR 4 catheter. Saphenous Vein graft to the DIAG selective angiography was performed in multiple views u sing a 5 Fr. JR 4 catheter. Saphenous Vein graft to the RPDA selective angiography was performed in m ultiple views using a 5 Fr. AR MOD catheter. Left internal mammary artery graft to the LAD non-select steve angiography was performed in multiple views using a 5 Fr. AR MOD catheter. Left Ventriculography was performed in CHAWLA projection using a 5 Fr. Pigtail catheter. LV to AO pullback pressures were then recorded. CORONARY ANGIOGRAPHY DOMINANCE: Right Dominant LEFT HEART ASSESSMENT Left Ventricular Ejection Fraction: by LV Gram 60 % Normal LV wall motion Normal Left Ventricular systolic function LEFT MAIN: Angiographically normal LEFT ANTERIOR DESCENDING ARTERY: MID LAD: is occluded CIRCUMFLEX ARTERY: Mild luminal irregularities less than 30% RIGHT CORONARY ARTERY: PROX RCA: 50 % Stenosis MID RCA: Mild luminal irregularities less than 30% RT PDA: Proximal - Diffusely diseased up to 70 % GRAFTS: Saphenous Vein graft to the 1st Diagonal is patent Saphenous Vein graft to the RPDA has a mid lesion of 85 % LARSEN graft to the Mid LAD patent, non selective COMPLICATIONS PROCEDURE MEDICATIONS Fentanyl 50 mcg IV Versed 1 mg IV Fentanyl 25 mcg IV Oxygen: 2 L/min via nasal cannula Heparin diluted in 23cc Heparinized saline. Patient given 10cc IA of this solution. 09/11/2020 09:59: 51 Heparin 5000 unit(s) IV 09/11/2020 10:55:01 Verapamil 2.5mg, Ntg 100mcgs, 2000 units of Heparin diluted in 23cc Heparinized saline. Patient give n 10cc IA of this solution. 09/11/2020 09:59:51 SUMMARY OF HEMODYNAMIC DATA Time AIR REST ECG 08:16:05 AO 128/68 (90) SA 10:15:17 AO 157/72 (105) 10:25:50 LV 150/6, 18 10:40:50 LV 136/11, 21 10:41:28 LVp 148/5, 20 10:41:36 AOp 142/65 (99) 10:41:41 AO 152/68 (99) 10:59:12 AO 152/68 (99) 10:59:12 10:59:26 Signed By Rivera Dan MD On 09/11/2020 11:00:50 AM Rivera Dan MD
--- NOTE | 2020-09-11 12:00 | EKG12_ITS ---
Test Reason : AM EKG Blood Pressure : / mmHG Vent. Rate : 055 BPM Atrial Rate : 055 BPM P-R Int : 168 ms QRS Dur : 150 ms QT Int : 472 ms P-R-T Axes : 070 -48 055 degrees QTc Int : 451 ms Sinus bradycardia Right bundle branch block Left anterior fascicular block Bifascicular block Abnormal ECG When compared with ECG of 11-SEP-2020 13:11, MANUAL COMPARISON REQUIRED, DATA IS UNCONFIRMED Confirmed by LOUIS JACKSON, RIVERA ([id number]), assistant editor BARBARA AGUILAR ([id number]) on 09/13/2020 10:14:53 AM Referred By: Rivera Dan Confirmed By:RIVERA DAN MD
--- NOTE | 2020-09-11 12:21 | CL.I_ITS ---
Patient Name: PIPPA NOEL Study Date: 09/11/2020 Performing: Henrry Umanzor MD Ht: 58 inches 147 cm : 1945 Wt: 178.8 lbs 81 kg Age: 75 Gender: female BSA: 1.73 PROCEDURE(S) PERFORMED [id number] AND/OR PTCA, SINGLE GRAFT CLINICAL PROFILE AND CO-MORBIDITIES Indications: Suspected CAD Heart Failure: None Stress/Imaging Stress/Image Study Performed: No CAD Presentations: Unstable angina. CONCLUSIONS Successful LONNY to SVG to RPDA RECOMMENDATIONS DESCRIPTION OF PROCEDURE The patient arrived to the procedure lab. The risks and benefits of the procedure as well as a full d escription of our services here and current unavailability of surgical backup were fully explained to the patient and/or their significant other prior to the catheterization. The Timeout was completed, verifying the correct patient and procedure. The patient's procedural site was prepped and draped in the usual fashion. Local anesthetic was given subcutaneously to left radial region with Lidocaine 2%. Local anesthetic was given subcutaneously to right groin region with Lidocaine 2% Using a modified S eldinger technique,arterial access was obtained via the left radial artery, a 6Fr sheath was inserted ., arterial access was obtained via the right femoral artery, a 5Fr sheath was inserted. Left Coronar y Artery selective angiography was performed in multiple views using a 5 Fr. JL4 catheter. Right Ghanshyam nary Artery selective angiography was then performed in multiple views using a 5 Fr. JR 4 catheter. Saphenous Vein graft to the DIAG selective angiography was performed in multiple views usi ng a 5 Fr. JR 4 catheter. Saphenous Vein graft to the RPDA selective angiography was performed in mul tiple views using a 5 Fr. AR MOD catheter. Left internal mammary artery graft to the LAD non-selectiv e angiography was performed in multiple views using a 5 Fr. AR MOD catheter. Left Ventriculography wa s performed in CHAWLA projection using a 5 Fr. Pigtail catheter. LV to AO pullback pressures were then r ecorded. Left internal mammary artery graft to the LAD NON-selective angiography was performed in mul tiple views using a 5 Fr. JR 4 catheter. Saphenous Vein graft to the RPDA selective angiography was p erformed in multiple views using a 5 Fr. MPA 2 catheter. Right Coronary Artery selective angiography was then performed in multiple views using a 5 Fr. JR 4 catheter.The images were reviewed and options discussed. A decision was then made to proceed with an Intervention, IVUS or other adjunct procedure. Arterial sheath was exchanged for a 6 Fr Sheath. MPA Guide catheter was inserted and engaged into the SVG to the Rt PDA. BMW Guide wire was advanced to the Right PDA. 2.50X12 EMERGE Balloon catheter was inserted. Balloon catheter was advanced across lesion in the graft to the Rt PDA. PTCA balloon i nflated at 6 atms for 8 secs. PTCA balloon inflated at 6 atms for 6 secs. 2.50X20 SYNERGY Drug Elutin g stent was inserted. Drug Eluting stent was advanced across the lesion in the graft to the Rt PDA. 2 .25X28 SYNERGY Drug Eluting stent was inserted. Drug Eluting stent was advanced across the lesion in the graft to the Rt PDA. Angiogram performed post stent deployment. The arterial sheath was pulled and a Perclose closure device was deployed for hemostasis INTERVENTION INFORMATION LESION SITE: Vein > to Rt PDA Segment Number: 4-Right posterior descending artery segment - rPDA , L esion Location: Body Lesion Complexity: High/C, chronic total occlusion: No, lesion at bifurcation: No, thrombus present: No, lesion length: 20 mm, culprit lesion: Yes, Previously treated lesion: No Pre Stenosis: 90 % Pre intervention VENUS flow: 2 PROCEDURE: Drug Eluting Stent with pre dilatation. Post Stenosis: 0 % Post intervention VENUS flow: 3 Lesion Devices: Gooden .014 BMW Ramona Straight 190cm Medtronic 6 Fr MP1 100cm Guide Catheter Shane Sci EMERGE MR 2.50x15 BALLOON Shane Sci Synergy MR LONNY 2.50x20 Shane Sci Synergy MR LONNY 2.25x28 COMPLICATIONS No Complications PROCEDURE MEDICATIONS Fentanyl 50 mcg IV Versed 1 mg IV Fentanyl 25 mcg IV Fentanyl 25 mcg IV Oxygen: 2 L/min via nasal cannula Brilinta 180 mg PO @ 09/11/2020 11:52:42 Heparin diluted in 23cc Heparinized saline. Patient given 10cc IA of this solution. 09/11/2020 09:59: 51 Heparin 5000 unit(s) IV 09/11/2020 10:55:01 Nitro 150 mcg IC 09/11/2020 11:03:15 Nitro 100 mcg IC 09/11/2020 11:17:40 Verapamil 2.5mg, Ntg 100mcgs, 2000 units of Heparin diluted in 23cc Heparinized saline. Patient give n 10cc IA of this solution. 09/11/2020 09:59:51 IV Bolus: .9 NaCl 500 ml total 09/11/2020 11:21:09 SUMMARY OF HEMODYNAMIC DATA Time AIR REST ECG 08:16:05 AO 128/68 (90) SA 10:15:17 AO 157/72 (105) 10:25:50 LV 150/6, 18 10:40:50 LV 136/11, 21 10:41:28 LVp 148/5, 20 10:41:36 AOp 142/65 (99) 10:41:41 AO 152/68 (99) 10:59:12 AO 152/68 (99) 10:59:12 RM AIR REST 10:59:26 AIR REST AO 100/58 (76) 11:06:32 AO 78/43 (57) 11:14:11 ECG 11:31:23 Signed By Henrry Umanzor MD On 09/11/2020 12:20:34 Henrry Umanzor MD
[2020-09-11] MEDS: 0.9% Normal Saline 1,000 ML 80 ML IV (12:37)
[2020-09-11 13:33] LABS: Hematocrit 42.5 % (37-47); Hemoglobin 13.4 g/dL (12.0-15.0); Mean Corp Hgb Conc 31.5 g/dL (32-36); Mean Corpuscular Hgb 28.6 pg (27.0-32.0); Mean Corpuscular Volume 90.8 fL (81-99); Mean Platelet Vol. 9.8 fl (6.2-12.0); Platelet Count 204 K/mm3 (150-450); RBC Distribution Width CV 14.5 % (11.6-14.6); RBC Distribution Width SD 48.3 fl (35.1-43.9); Red Blood Count 4.68 M/mm3 (4.2-5.4); White Blood Count 7.5 K/mm3 (4.4-11.0)
--- NOTE | 2020-09-11 13:52 | CRPHASE1 ---
Patient Communication PHII Cardiac Rehab Discussed with Patient:: Yes Guide to Cardiac Rehab Given to Patient:: Yes Cardiac Rehab Facility Choice List Given to Patient:: Yes Choice Program [facility] PHII:: Communication Given to CR, Refer to [facility] Material Preparation Worker:: Joaquin Umanzor - Intervention doctor Refer Phase II Cardiac Rehab:: Yes Sessions:: 36 sessions - 3 days/wk, 12 weeks Cardiac Rehabilitation Info Cardiac Rehabilitation Program Information: Cardiac Rehabilitation is important for patients like you who are recovering from a heart problem. Cardiac rehabilitation programs are recognized as integral to the continued care of the patient with coronary heart disease. The cardiac rehabilitation program is designed to optimize a patient's physical, psychological, and social functioning. Health foster care case manager work in cardiac rehabilitation programs and assist you with getting the treatments you need to get stronger and healthier - like exercise, healthy eating habits, and medications. Cardiac rehabilitation has been show to help people with heart problems live longer and have better life enjoyment than people who do not go to cardiac rehabilitation. Please contact the Cardiac Rehabilitation Program at [facility] at in two weeks if you have not heard from them.
--- NOTE | 2020-09-11 13:54 | CRPH1.INST_ITS ---
General Education CAD and cardiac anatomy and function:: Patient communicates acknowledgment Explanation of diagnoses and procedures:: Patient communicates acknowledgment Sign/Symptoms of HI:: Patient communicates acknowledgment Antiplatelet therapy: Patient communicates acknowledgment Proper use of NTG-SL: Patient communicates acknowledgment Emergency procedures and activation of EMS: Patient communicates acknowledgment Compliance of all prescribed medications: Patient communicates acknowledgment Dyslipidemia Patient Dyslipidemia Risk Factors Are:: Total Cholesterol - 122, Triglycerides - 239, HDL - 32, LDL - 42 Recommendations Include:: Lipid profile provided, Reviewed NCEP/ATP guidelines, Therapeutic Lifestyle Change dietary guidelines Dyslipidemia Response Code:: Patient communicates acknowledgment Overweight/Obesity Patient Overweight/Obesity Risk Factors Are:: Obesity - > or = 30 Recommendations Include:: Weight loss of 5-10%, Reduced calorie diet, Exercise 5-7 times/week Overweight/Obesity:: Patient communicates acknowledgment Hypertension Recommendations Include:: Maintain BP <130/85, DASH dietary guidelines, Decrease/maintain normal body weight, Moderation of ETOH Hypertension:: Patient communicates acknowledgment Heart Disease Patient Heart Disease Risk Factors Are:: Previous cardiac event Recommendations Include:: Educated family members of their risk, Educated family members of importance of prevention of heart disease Heart Disease Response Code:: Patient communicates acknowledgment Metabolic Syndrome Patient Metabolic Syndrome Risk Factors Are [3 of 5]:: Waist circumference > 35 [female] or 40 [male], High triglyceride >150, Hypertension, Low HDL <40 [male] or < 50 [female] Recommendations Include:: Reinforce compliance to risk factor modifications, E ncouraged follow-up with Primary Care Physician Metabolic Syndrome Response Code:: Patient communicates acknowledgment
[2020-09-11] MEDS: Gabapentin 100 MG Capsule 200 MG PO (19:25)
[2020-09-11] MEDS: Metoprolol Tartrate 25 MG Tablet PO (20:43)
[2020-09-11] MEDS: TICAGRELOR 90 MG TABLET PO (20:43)
[2020-09-12 03:19] VITALS: PULSE 61
[2020-09-12 04:17] VITALS: BP 137/71; PULSE 63; RESP 17; TEMP 36.3; O2SAT 95
[2020-09-12] MEDS: Gabapentin 100 MG Capsule 200 MG PO (05:30)
[2020-09-12 06:23] LABS: Hematocrit 39.7 % (37-47); Hemoglobin 12.6 g/dL (12.0-15.0); Mean Corp Hgb Conc 31.7 g/dL (32-36); Mean Corpuscular Hgb 28.6 pg (27.0-32.0); Platelet Count 193 K/mm3 (150-450); RBC Distribution Width CV 14.5 % (11.6-14.6); RBC Distribution Width SD 47.8 fl (35.1-43.9); Red Blood Count 4.41 M/mm3 (4.2-5.4)
[2020-09-12 06:53] LABS: ALB/GLOB Ratio 0.9 RATIO (0.9-2.4); AST(SGOT) 73 U/L (15-37); Alanine Aminotransfer ALT/SGPT 37 U/L (13-56); Alkaline Phosphatase 53 U/L (45-117); Anion Gap 7 (5-15); BUN 25 mg/dL (7-18); BUN/Creat Ratio 22.1 RATIO (10-20); Calcium,Total 8.8 mg/dL (8.5-10.1); Chloride 105 mmol/L (98-107); Creatinine, Serum 1.13 mg/dL (0.55-1.02); EST Glomerular Filtration Rate 50 mL/min (>60); Est Glom Filt Rate - Afr Amer 60 mL/min (>60); Estimated Creatinine Clearance 55.43 ml/min; Globulin 3.5 g/dL (2.2-4.2); Glucose 104 mg/dL (74-106); Potassium 4.1 mmol/L (3.5-5.1); Protein, Total 6.5 g/dL (6.4-8.2); Sodium Level 139 mmol/L (136-145)
[2020-09-12 07:00] VITALS: PULSE 55
[2020-09-12 08:00] VITALS: BP 130/87; PULSE 67; RESP 18; TEMP 36.6; O2SAT 94
--- NOTE | 2020-09-12 08:55 | PCM.PN.CARD ---
Subjectve: Patient seen and evaluated. Objective: Vital Signs Temp Pulse Resp BP Pulse Ox 97.4 F L 55 L 17 137/71 H 95 09/12/20 04:17 09/12/20 07:00 09/12/20 04:17 09/12/20 04:17 09/12/20 04:17 Oxygen Delivery Method Room Air Weight: 182 lb 12.211 oz Body Mass Index (BMI) 39.0 Intake and Output for Last 24 Hours 09/10/20 09/11/20 09/12/20 23:59 23:59 23:59 Intake Total 823.73 / 823.73 1120 / 1120 Output Total 100 / 100 Balance 723.73 / 723.73 1120 / 1120 General: Awake, Alert, Oriented x 3 HEENT: PERRL, EOMI, Sclera Non Icteric Neck: Supple, Good ROM, No Lymph Node Enlargement Lungs: Clear to auscultation Cardiovascular: Regular Rhythm, Normal S1, Normal S2, No Murmurs, No Rubs, No Gallops Vascular: No Carotid Bruits, Normal Femoral Pulses, Normal Radial Pulses, Normal Dorsalis Pedal Pulse, Normal Posterior Tibial Pulses Abdomen: Bowel Sounds Present, Soft, Non Tender, No HSM, No Organomegaly Extremities: No Cyanosis, No Clubbing, No edema Musculoskeletal: No Erythema Skin: No Rashes Neurological: No Focal Motor or Sensory Deficit Psych/Mental Status: Appropriate 09/11/20 13:05: WBC 7.5, RBC 4.68, Hgb 13.4, Hct 42.5, MCV 90.8, MCH 28.6, MCHC 31.5 L, Plt Count 204, MPV 9.8 09/12/20 05:58: WBC 8.0, RBC 4.41, Hgb 12.6, Hct 39.7, MCV 90.0, MCH 28.6, MCHC 31.7 L, Plt Count 193, MPV 10.0 09/12/20 05:58: Sodium 139, Potassium 4.1, Chloride 105, Carbon Dioxide 27.0, Anion Gap 7, BUN 25 H, Creatinine 1.13 H, Est GFR (MDRD) Af Amer 60, Est GFR (MDRD) Non-Af 50 L, BUN/Creatinine Ratio 22.1 H, Glucose 104, Calcium 8.8, Total Bilirubin 0.30 Rhythm: EKG: ECHO: Stress Test: Cardiac Cath: PCI: CT Surgery: Holter monitor: EPS: PPM: CXR: Chest CT Scan: Medical Necessity - Tobacco Use Smoking Status: Never smoker Assessment/Plan 1. S/P PCI to the SVg of the RCA Patient did well post PCI. Appears to be free of any chest pain. Would recommend continue medical therapy together with the Brilinta. Will discharge for outpatient follow-up.
--- NOTE | 2020-09-12 09:00 | PCM.DC.CCA ---
Discharge Diet: Low fat/ Low Cholesterol Lifting Restrictions: 10 pounds and also avoid any pushing or pulling for 3 days after your test. Additional Activity Instructions:: You must have someone drive you home. Do not drive until instructed by your doctor. You must have someone stay with you all night after your test. Rest in bed or on the couch until the next morning. Limit the number of times you go up and down stairs the day of your test. Apply pressure to the puncture site if you sneeze or cough. Call your doctor if your incision/area has: Increased Pain/ Swelling, Increased Redness, Foul Smelling Discharge, Swelling at the incision site Call your doctor if you observe: Fever of 101 or Higher Additional Dressing/Incision Instructions:: Keep the dressing (bandage) on until the next morning. You may then shower, but do not take a tub bath for 5 days after your test. It is normal to have some tenderness and discomfort at the puncture site. Sometimes bruising also occurs. However, if pain, numbness, or coldness occurs below the puncture site (in your leg, toes, arms or fingers) call your doctor at once. You may have a small, marble sized knot at the puncture site. This is normal. Do not rub it. It will go away in 4-6 weeks. Bleeding can occur from the area where the puncture was done. Blood may spurt or drip from the site. If blood spurts, apply pressure right away to stop bleeding and call 911. Although rare, bleeding into the tissue (hematoma) can also occur. If this happens, a large, firm area goose egg under the skin will appear. If any of these occur, lie down as flat as you can and have someone apply firm pressure to the cath site with a gauze pad or a clean washcloth for 10-15 minutes. Call 911 or go to the Emergency Department. Allergies/Adverse Reactions: Allergies sulfamethoxazole [From Bactrim] Allergy (Verified 08/30/20 12:45) Rash trimethoprim [From Bactrim] Allergy (Verified 08/30/20 12:45) Rash JESSICA Inhibitors Adverse Reaction (Severe, Verified 08/30/20 12:45) Cough, non productive atorvastatin [From Lipitor] Adverse Reaction (Severe, Verified 08/30/20 12:45) Myalgias Medications to take at Discharge Aspirin 81 mg PO DAILY 01/06/17 Multivitamin [Daily Multiple Vitamin] 1 ea PO DAILY 01/06/17 Omeprazole [Prilosec] 40 mg PO DAILY 01/06/17 nitroglycerin 0.4 mg sublingual tablet 0.4 mg SUBLINGUAL Q5M PRN #25 tab 02/11/18 gabapentin 100 mg capsule 200 mg PO TID cap 05/11/19 metoprolol tartrate 25 mg tablet 25 mg PO BID #180 tab 11/24/19 hydrochlorothiazide 25 mg tablet 25 mg PO DAILY 08/30/20 rosuvastatin 40 mg tablet 40 mg PO DAILY 08/30/20 Ticagrelor [Brilinta] 90 mg PO BID #60 tablet 09/12/20 The following prescriptions were given: Ticagrelor [Brilinta] 90 mg PO BID #60 tablet Transmission Status: Pending to [facility]/pharmacy #[id number] Orders to be completed after discharge: Phase II, Outpatient Cardiac Rehab Location: None Selected Primary Care Physician: Vicente Simon DO [Primary Care Provider] - Test Results: Test results from this visit will be discussed in further detail at your follow-up appointment, if applicable. When: [facility]. They will send appointment. Proposed Discharge Date: 09/12/20 Cardiac Rehabilitation Info Cardiac Rehabilitation Program Information: Cardiac Rehabilitation is important for patients like you who are recovering from a heart problem. Cardiac rehabilitation programs are recognized as integral to the continued care of the patient with coronary heart disease. The cardiac rehabilitation program is designed to optimize a patient's physical, psychological, and social functioning. Health primary care pediatrician work in cardiac rehabilitation programs and assist you with getting the treatments you need to get stronger and healthier - like exercise, healthy eating habits, and medications. Cardiac rehabilitation has been show to help people with heart problems live longer and have better life enjoyment than people who do not go to cardiac rehabilitation. Please contact the Cardiac Rehabilitation Program at [facility] at in two weeks if you have not heard from them.
[2020-09-12 09:04] VITALS: BP 130/87; PULSE 67; RESP 18; TEMP 36.6; O2SAT 94
[2020-09-12 09:06] VITALS: BP 130/87; PULSE 67
[2020-09-12] MEDS: Pantoprazole Sodium 40 MG Tablet PO (09:06)
[2020-09-12] MEDS: Metoprolol Tartrate 25 MG Tablet PO (09:06)
[2020-09-12] MEDS: TICAGRELOR 90 MG TABLET PO (09:07)
[2020-09-12] MEDS: Rosuvastatin 20 MG Tablet 40 MG PO (09:07)
[2020-09-12] MEDS: Aspirin 81 MG TAB.CHEW PO (09:07)
--- NOTE | 2020-09-12 09:59 | CASEMGMT ---
Pt to be sent home on Brilinta at discharge and med e-scribed to [facility] previously. Call to pharmacist at [facility] and she states co-pay is $200.53 at this time. Pt updated and provided with Brilinta 30 day free trial card. Pt aware to notify Dr. Dan, if co-pay continues to be excessive, voices understanding. Pt voices no further questions/concerns/needs. Kerri SOLIS CM
--- NOTE | 2020-09-12 10:00 | EKG12_ITS ---
Test Reason : PCI Blood Pressure : / mmHG Vent. Rate : 054 BPM Atrial Rate : 054 BPM P-R Int : 176 ms QRS Dur : 148 ms QT Int : 488 ms P-R-T Axes : 069 -37 078 degrees QTc Int : 462 ms Sinus bradycardia Left axis deviation Right bundle branch block Abnormal ECG When compared with ECG of 11-SEP-2020 11:40, MANUAL COMPARISON REQUIRED, DATA IS UNCONFIRMED Confirmed by SRAVANTHI JACKSON, NIKO ([id number]), film editor supervisor GEORGE ALFARO ([id number]) on 09/14/2020 12:46:46 PM Referred By: Rivera Dan Confirmed By:OLEGARIO FISHMAN MD
== END 2020-09-12 09:01 | disposition home or self-care (01) ==
LOC: CLSP 07:50 → PCU 09-12 09:24
PROVIDERS: Specialist; PCP Student in an Organized Health Care Education/Training Program; Referring Provider Internal Medicine Cardiovascular Disease; Visit Provider Internal Medicine Cardiovascular Disease
DX: I25.110 Atherosclerotic heart disease of native coronary artery with unstable angina pectoris (principal); I45.2 Bifascicular block; I10 Essential (primary) hypertension; E78.00 Pure hypercholesterolemia, unspecified; E78.5 Hyperlipidemia, unspecified; M19.90 Unspecified osteoarthritis, unspecified site; E66.9 Obesity, unspecified; Z68.37 Body mass index [BMI] 37.0-37.9, adult; Z95.1 Presence of aortocoronary bypass graft; Z95.5 Presence of coronary angioplasty implant and graft; Z79.82 Long term (current) use of aspirin; Z79.899 Other long term (current) drug therapy
CPT/HCPCS: 36415; 71046; 80048; 80053; 85025; 85027; 92937; 93005; 93459; 99152; 99153; C1894; J7030; J7040; Q9967; C1725; C1760; C1769; C1874; C1887; C9604; J1327; J2405

== ENCOUNTER → 2020-09-25 12:54 | Outpatient (CLI) | payer MEDICARE, OTHER, SELFPAY ==
[2020-09-11 12:25] VITALS: BMI 39.0
--- NOTE | 2020-09-25 13:05 | PCM.CR.HP2 ---
CR - History & Physical - General Arrival date:: 09/25/20 Arrival time:: 13:06 Date of Referral:: 09/11/20 Date of CR Evaluation:: 09/25/20 Referring Physician: Dr. Rivera Dan Primary Diagnosis: PCI with stent Z95.5 - History of Present Cardiac Event Onset Date: Enter Onset Date of cardiac illnesses in Comment field below Current stable Angina Pectoris:: No Acute Myocardial Infarction within 12 months:: No Coronary Artery Bypass Graft:: Yes - in 2006 PTCA or coronary stenting:: Yes - 09/11/2020 - Medications Home Medications: Ambulatory Orders Medication Instructions Recorded Aspirin 81 mg PO DAILY 01/06/17 Multivitamin [Daily Multiple 1 ea PO DAILY 01/06/17 Vitamin] Omeprazole [Prilosec] 40 mg PO DAILY 01/06/17 nitroglycerin 0.4 mg sublingual 0.4 mg SUBLINGUAL Q5M PRN #25 tab 02/11/18 tablet gabapentin 100 mg capsule 200 mg PO TID cap 05/11/19 metoprolol tartrate 25 mg tablet 25 mg PO BID #180 tab 11/24/19 hydrochlorothiazide 25 mg tablet 25 mg PO DAILY 08/30/20 Ticagrelor [Brilinta] 90 mg PO BID #60 tablet 09/12/20 rosuvastatin 20 mg tablet See Rx Instructions .ROUTE 09/13/20 .COMPLEX #90 tablet - Allergies Allergies/Adverse Reactions: Allergies sulfamethoxazole [From Bactrim] Allergy (Verified 08/30/20 12:45) Rash trimethoprim [From Bactrim] Allergy (Verified 08/30/20 12:45) Rash JESSICA Inhibitors Adverse Reaction (Severe, Verified 08/30/20 12:45) Cough, non productive atorvastatin [From Lipitor] Adverse Reaction (Severe, Verified 08/30/20 12:45) Myalgias - Sleep Disorder Evaluation Hx of Sleep Apnea: Yes Do you snore loudly (louder than talking or can be heard through closed doors)?: Yes - pt declines a sleep study Do you often feel tired/ fatigued/ sleepy during daytime?: No Has anyone observed you stop breathing during sleep?: No History of Hypertension (for STOP score): Yes STOP Results: Positive Advanced Directives - Advanced Directives Power of Ophthalmic Medical Technologist: Yes Living Will: Yes Advance Directives Information Provided: Yes Advance Directives on File: No DNR Order?:: No Past Medical History - Covid-19 Screening Fever: No Unexplained muscle aches: No Current respiratory symptoms: No Upper respiratory infections symptoms: No Gastro-intestinal symptoms: No Bfc-Mlml-Psfaez symptoms: No Has tested positive for COVID-19 in last 30 days: No Had contact w/person w/symptoms or Covid-19 (+) last 14 days: No Has High Risk Exposures ID'd by Health dept/Inf Control team: No 65 years or older:: Yes Lives in Assisted Living facility:: No Has a chronic lung disease or moderate to severe asthma:: No Has a serious heart condition:: Yes Immunocompromised:: No Severely obese (Body Mass Index of 40 or higher):: No Diabetic:: No Has chronic kidney disease undergoing dialysis:: No Has liver disease:: No - Past Medical Illness Medical History: Past Medical History (Last Reviewed 08/30/20 @ 15:[address] 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 Arthritis M19.90 Obesity E66.9 Spinal stenosis M48.00 History of hysteroscopy Z98.890 - Past Surgical History Surgical History: Past Surgical History (Last Updated 09/11/20 @ 13:00 by Kathy Uriostegui) History of coronary artery stent placement (Acute) Onset Date: 09/11/20 Z95.5 [id number] w/ 2.5 x 20 mm and 2.25 x 28 mm Synergy Stents 09/11/20 H/O coronary artery bypass surgery (Resolved) Onset Date: 04/23/07 Z95.1 CABG x 3 LARSEN-LAD, SVG-D1,SVG-RPDA 04/23/2007 History of carpal tunnel release Z98.890 spinal cord stimulator implant - Family History Summary Family History: Family History (Last Reviewed 08/30/20 @ 15:[address] Rivera Dan MD) Father , age 84 renal failure No problems noted. Mother , age 80 of diabetic complications Diabetes Social History - Smoking History Smoking Status: Never smoker Hx Tobacco Use: No Hx Smoking Exposure: Yes - former spouse - Alcohol Use Alcohol Usage: Yes - up to 3 times a week/ wine - Substance Abuse Hx Substance Use: No - Occupation Occupation (List type of work in comments):: Retired - Hobbies, Recreation, Social Activities Hobbies: Reading, Other - gardening, music, golf, travel Recreational Activities: I am able to engage in most, but not all activities Social Environment - Status Marital Status: - Current Living Arrangements Living Environment:: Alone, Spouse - Children How many children do you have?: 2 Do any of your children live nearby?: Yes - Safety Do you feel safe in your surroundings?: Yes - Assistance Do you need any assistance at home?: no Review of Systems - Review of Systems Hints: Right click = Denies (Slash). Left click = Reports ([place]) Review of Present Symptoms: Reports: Appetite - Normal, Appetite - Special Diet, Sleep - Normal. Denies: Shortness of Breath at Rest, Shortness of Breath with Exertion, PVD, Operative Discomfort, Angina, Wound Healing, Dizziness/Lightheadedness, Fatigue, Heart Arrhythmia/Irregularities, Sexual Changes - Pain Is Patient Pain Free?: No Pain Location: back - hips, spinal stenosis. Pain Level: 8/10 Risk Factor Assessment - Chief Complaint Chief Complaint: PCI with stent - Vital Signs Pulse Ox: 95 Blood Pressure: 112/48 - Pulse Pulse Rate: 60 Pulse Rhythm: Regular - Diabetes Nutrition Referral for Diabetes: No - Obesity Height: 4 ft 10 in Weight:: 81.193 kg Weight in Pounds: 179.0 lbs Body Mass Index (BMI): 37.4 Nutritional Referral for Obesity: No - pt declines - Physical Inactivity Physical Inactivity: None - Risk Stratification Risk Guidelines: Lowest Risk: Risk Factor for Smoking, Moderate Risk: Risk Factor for Dyslipidemia, Risk Factor for Diabetes, Risk Factor for Obesity, Risk Factor for Hypertension, Risk Factor for Sedentary Lifestyle, Risk Factor for Depression - For Smoking Smoking Risk Guidelines: Smoking Low Risk: None or quit greater than 6 months ago. Smoking Moderate Risk: Smoker or quit 6 months or less ago. Smoking High Risk: Smoker - For Dyslipidemia Dyslipidemia Risk Guidelines: Low Risk: Moderate Risk: High Risk: 15-25% fat 25.1-29% fat >/= 30% fat. <7% sat fat 7-9% sat fat >9% sat fat. <150 mg chol 150-299 mg chol >/= 300 mg chol. LDL <100 LDL 100-129 LDL >/= 130. Chol/HDL ratio <5.0 Chol/HDL ratio 5.0-6.0 Chol/HDL ratio >6.0. Triglycerides <100 Triglycerides 100-149 Triglycerides >/= 150 - For Diabetes Mellitus Diabetes Risk Guidelines: Diabetes Low Risk: HgA1c <6.5% and/or FBG <120. Diabetes Moderate Risk: HgA1c 6.6-7.9% and/or FBG 120-180. Diabetes High Risk: HgA1c >/= 8% and/or FBG >180 - For Obesity/Overweight Obesity/Overweight Risk Guidelines: Obesity Low Risk: BMI <25.0. Obesity Moderate Risk: BMI 25-29.9. Obesity High Risk: BMI >/= 30.0 - For Hypertension Hypertension Risk Guidelines: Hypertension Low Risk: Systolic <120 and Diastolic <80. Hypertension Moderate Risk: Systolic 120-139 and Diastolic 80-89. Hypertension High Risk: Systolic >/= 140 and Diastolic >/= 90 - For Sedentary Lifestyle Sedentary Lifestyle Risk Guidelines: Sedentary Lifestyle Low Risk: >/= 1,500 kcal/week. Sedentary Lifestyle Moderate Risk: 700-1,499 kcal/week. Sedentary Lifestyle High Risk: < 700 kcal/week - For Depression Depression Risk Guidelines: Depression Low Risk: Not clinically depressed. Depression Moderate Risk: Mildly depressed. Depression High Risk: Clinically depressed - Family History Family History: Family History (Last Reviewed 08/30/20 @ 15:[address] Rivera Dan MD) Father No problems noted. Mother Diabetes Motivation - Motivation to Participate On a scale of 1 to 10, how prepared are you to commit to attending program?: 10 What do you see as barriers to successfully being able to complete the program?: none What do you see as the benefits of succesfully completing the program? In other words, what do you hope to get out of participating in the program?: improved health Are there issues you are dealing with that will interfere with completing the program?: no Do you have a spouse or signficant other, family or friends who will help support you to complete the program?: yes
--- NOTE | 2020-09-25 13:05 | PCM.CR.ITP ---
Diagnosis - General Information Admitting Diagnosis: PCI with stent Personal Learning Style:: Audio/Visual, Demonstration, Group, Individual Preference, Written Barriers to Learning: No Barriers Stage of change r/t lifestyle modifications:: Contemplation Gave educational material for:: Treating Heart Disease, Emotions & Heart Disease, Stress Management & Relaxation, Sleep Disorders & Heart Disease, How The Heart Works, What it means to have Heart Disease, How Coronary Artery Disease is Diagnosed, Heart Procedures, What Heart Medications Do, Risk Factors & Modifications, Living an Active Life, Nutrition - Education/Goals Cardiac Rehabilitation Goals: 1. Maintain the individual as the primary focus of care. 2. To improve the patient's quality of life. 3. Identification of cardiac risk factors and provide cardiac risk factor management. 4. Enhance the psychosocial status of the patient. 5. Reconditioning enough to allow the patient to resume customary activities. 6. Control symptoms of cardiac disease Personal Goals: Initial Assessment: Improve energy level, Improve muscle strength and endurance, Control risk factors (learn risk factor modification) Scale for measuring improvement of personal goals: Enter appropriate number in Comments. 2 = Unchanged. 3 = Slightly Better. 4 = Moderate Improvement. 5 = Met my Goal - Diagnosis & Disease Process Outcomes/Goals: Pt IDs own risk factors & lifestyle modifications by Session 10, Verbalizes symptoms of angina & response by session 3., Pt independently manages, Other Additional Outcomes/Goals: Plan/Interventions: Assist Pt to ID & engage in lifestyle modification to reduce CVD risk, Instruct on individual risk factors, Review symptoms of angina & emergency actions, Review secondary diagnosis & identify educational needs., Other see comment 30 day Reassessments:: Not Met 30 day Reassessments:: Not Met 30 day Reassessments:: Not Met 30 day Reassessments:: Not Met Final Reassessments:: Not Met - Safety Referral to Physical Therapy: No Referral to [facility] [place] Case Management: No Fall Risk Assessed:: Yes Assistive Devices:: Cane - no treadmill for now. Exercise - Initial Assessment - Visit Date of Eval: 09/25/20 - initial eval Mets: Pre-: >5 METS for 30 minutes by discharge - Physician Prescribed Exercise Modalities: Biodyne, Rower, Airdyne, NuStep, SciFit Frequency: 3x/week for 12 weeks [36 sessions] Intensity: 60-80% of age predicted maximum heart rate reserve - Outcomes & Goals Goals:: Verbalizes understanding of THR, RPE & goal METS by session 6, Documents in home exercise log/reports 30 min aerobic 5 day/wk by DC, Demonstrates accurate pulse taking by DC, Other additional outcome/goals: see below - Intervention & Plan Exercise Program Goals: Instruct on personal THR & RPE, Instruct on MET level & personal MET goal, Show patient to take own pulse /validate performance until accurate, Instruct on home exercise, Other additional plan/int - Physical Activity Home Exercise Physical Activity - Home Exercise: Safe Exercise, Warm-up, Self-monitoring, Cool-Down, Home Exercise > 30 min Daily, Sitting Time <3 hours/daily - Outcomes & Goals Outcomes/Goals: Demonstrates correct Warm-up/exercise Cool-Down (S3) if = 2.5 METs, Verbalizes symptoms of exercise intolerance by Session 3 (S3), Demonstrate safe equipment use (S3) & follows exercise prescrition (6), Other: See below - Intervention & Plan Plan/Intervention: Instruct warm-up & cool-down if exercising at > 2 METs, Instruct on symptoms of exercise intolerance & actions to take, Instruct & monitor on saf, Assess intial functional capacity & safety risk, Other See below Nutrition - Initial Assessment - Program Goals Nutrition Program Goals: LDL <100 optimal. 100 - 129 Near optimal. 130 - 159 Borderline High. 160 - 189 High. Total Cholesterol <200 desirable. 200 - 239 Borderline High. >/= 240 High. HDL < 40 Low >/=60 High. Triglycerides <150 desirable. <199 optimal. VlDL 5 - 40. HgbA1C <7%. BMI <25 Patient has diagnosis of Hyperlipidemia (ICD E78)?: Yes - Visit Date of Assessment:: 09/25/20 - initial eval - Cholesterol/Lipids Determine presence & major risk factors that modify LDL goal: Hypertension or hypertensive medication, Low HDL cholesterol <40 mg/dL* Outcomes/Goals: Pt IDs own risk factors & lifestyle modifications by Session 10, Verbalizes symptoms of angina & response by session 3., Pt independently manages, Other Additional Outcomes/Goals: Intervention/Plan: Advocate for lipid panel cholesterol medication if applicable, Instruct on personal lipid levels & lipid goals/NCEP guidelines, Instruct on cholesterol, Other additional plan/int - Diabetes (Other Core Measures) Diabetes Type: Not Applicable - Weight Mgt (Other Care) Height: 4 ft 10 in Weight:: 81.193 kg BMI: 37.4 Diagnosis Overweight/Obesity BMI> 30% ICD-10 E66: No Diagnosis High BMI/Morbid Obesity BMI> 35% ICD-10 Z68: Yes Outcomes/Goals: Pt sets, maintains & shows weight loss goal & trend during rehab, Other additional outcomes/goals Intervention/Plan: Instruct on ideal BMI & set weight loss goal w/patient, Assist pt to ID & incorporate diet changes for weight loss by S9, Refer to Structured Weight Loss program as appropriate, Encourage goal of using 250-300dcal per session for weight loss, Other additional plan/interventions - Healthy Eating Habits Will attend diet classes:: Yes Outcomes/Goals:: Consume diet rich in vegs,fruits,whole grain/high fiber,fish,lean meat, Limit sat/trans fats,cholesterol & added salts & sugars, Other additional outcome/goals: Intervention/Plan:: Assess current eating habits, Other Additional plan/interventions - Education Gave educational materials for:: Signs & symptoms of hypoglycemia, Signs & symptoms of hyperglycemia, Relate diabetes to coronary artery disease, Healthy eating Medical - Initial Assessment - Visit Date of Eval: 09/25/20 - initial eval - Medication Compliance Preventative Medication(s):: Aspirin, Statin/lipid, Beta belem H/O mental health issues: depression, anxiety, or addiction?: No Doesn?t believe in the benefits of treatment?: No Believes medications are unnecessary or harmful?: No Has a concern about medication side effects?: No Expresses concern over the cost of medications?: No Outcomes/Goals: Verbalizes medications,desired effect & common side effects @ DC, Pt self-reports following medication regimen, Keeps card in wallet w/medications listed by DC, Other additional outcome/goals: - Tobacco Use Tobacco Use: Non-smoker Do you use smokeless tobacco?: No - Hypertension Hypertension Diagnosis:: Hypertension ICD-10 I10 Resting Blood Pressure:: 112/48 [place] [employer] Hypertension Guidelines: [place] [employer] Hypertension Guidelines. Normal BP Less than 120/80. Elevated BP 120/80. Hypertension Stage 1: BP 130-139/80-89. Hypertesnion Stage 2: BP 140 or higher/90 or higher. Hypertension Crisis: BP higher than 180/120 Outcomes/Goals: Able to verbalize/achieve optimal blood pressure <130/80, Incorporates diet changes & exercise for blood pressure control by DC, Other additional outcomes/goals Interventions/plan: Instruct on optimal blood pressure, hypertension & medications, Instruct on effects of sodium, alcohol, stress, exercise &hypertension, Other additional plan/interventions - Tobacco Cessation Referral Smoking Cessation Referral:: No Individual Education/Counseling:: No Education Schedule Given:: Yes Psychosocial - Initial Assess - VIsit Date of Eval: 09/25/20 - initial eval History of previous Mental disease:: No - Target Goals Target Goals: Assess presence or absence of depression. Using a valid screening tool, maximizes coping skills. Positive support system - Psychosocial Test phq-9 Severity: Severity. 1-4 Minimal Depression. 5-9 Mild Depression. 10-14 Moderate Depression. 15-19 Moderately Sever Depression. 20-27 Severe Depression. Rule: - Outcomes/Goals: See list Psychosocial Outcomes/Goals:: ID's personal stressors & 2 strategies to manage stress by discharge, Other Additional outcome/goals: - Intervention/Plan: See List Interventions/Plan:: Assess stressors,coping strategies & signs of derpression on admission, Instruct/assist pt to develop coping & personal stress Mgt strategies, Refer to Behavioral Health if appropriate, Refer to Physician if appropriate, Instruct patient to recognize signs & symptoms of depression, Instruct patient to recog, Other additional plan/intervention Patient Health Questionnaire Initial Assessment 1. Little interest or pleasure in doing things: Not at all 2. Feeling down, depressed, or hopeless: Not at all 3. Trouble falling or staying asleep, or sleeping too much: Not at all 4. Feeling tired or having little energy: Several days 5. Poor appetite or overeating: Not at all 6. Feeling bad about yourself -- or that you are a failure or have let yourself or your family down: Not at all 7. Trouble concentrating on things, such as reading the newspaper or watching television: Not at all 8. Moving or speaking so slowly that other people could have noticed. Or the opposite - being so fidgety or restless that you have been moving around a lot more than usual: Not at all 9. Thoughts that you would be better off , or of hurting yourself in some way: Not at all How difficult have these problems made it for you to do your work, take care of things at home, or get along with other people?: Somewhat difficult Total Score: 1 ADRYAN-Q SV Test - Statements CAD is a disease of the arteries in the heart: False Examples of risk factors for heart disease: True Angina is chest pain or discomfort: False The benefits of resistance training include: True Eating more meat and dairy products: False Anti-platelet medications such as aspirin are important: True The only effective way to manage stress: False An exercise warm-up slowly increases heart rate: True Prepared, processed foods usually have high sodium: True Depression is common after a heart attack: I Don't Know The statin medications lower cholesterol: True To control blood pressure, lower the amount of sodium: True If someone gets chest discomfort during walking: False Transfats are partially hydrogenated vegetable oils: True Sleep apnea that is not treated increases the risk: False To control cholesterol, one should become a vegetarian: False Someone knows if he/she is exercising at the right level: True Diabetes cannot be prevented with exercise & health eating: I Don't Know Stress is a large risk for heart attack: True A diet that can help lower blood pressure is rich in: True - Total Score Total Correct Responses: 17 Self-Efficacy Initial Assessment We would like to know how confident you are in doing certain activities. Please select your confidence level for:: Select your confidence level for the following using the scale 1-10 where 1 is not at all confident and 10 is totally confident. Your score is the average of all 6 responses. Fatigue: How confident are you that you can keep the fatigue caused by your disease from interfering with the things you want to do? Select Number: 5 Physical Discomfort or Pain: How confident are you that you can keep the physical discomfort or pain of your disease from interfering with the things you want to do? Select Number: 5 Emotional Distress: How confident are you that you can keep the emotional distress caused by your disease from interfering with the things you want to do? Select Number: 9 Other Symptoms or Health Problems: How confident are you that you can keep other symptoms or health problems from interfering with the things you want to do? Select Number: 6 Different Tasks and Activities: How confident are you that you can do the different tasks and activities needed to manage your health condition so as to reduce your need to see a doctor? Select Number: 8 Medication: How confident are you that you can do things other than just taking medication to reduce how much your illness affects your everyday life? Select Number: 7 Total Score:: 6 Nutrition Survey - Nutrition Survey Instructions Scoring Instructions: Scoring is as follows: Yes = 1 points. No = 0 point. Patient score that is >/=12 is considered to be at potential nutritional risk and could benefit from a referral to a registered dietitian. - Nutrition Survey Initial Have you lost >10 lbs over the past 2 months without trying?: No Are you following a special diet at home for diabetes, low fat, or low salt?: No Are you interested in meeting with a dietitian for help understanding your diet?: No Do you eat less than 3 meals a day?: No Do you eat fatty meats (dawkins, sausage, ribs, etc), fried foods, desserts, large amounts of salad dressings, margarine, butter, or cheese most days?: No Do you have food allergies? [Enter types in comment field]: No Do you eat in restaurants more than 3 times a week?: Yes Do you season food with salt, seasoning salt, or garlic salt?: Yes Do you used canned, boxed, frozen meals, or soups, seasoning packets?: Yes Total Score:: 3
[2020-09-25 14:14] VITALS: BP 112/48; PULSE 60; O2SAT 95; BMI 37.4
== END ==
PROVIDERS: PCP Student in an Organized Health Care Education/Training Program; Referring Provider Internal Medicine Cardiovascular Disease; Visit Provider Internal Medicine Cardiovascular Disease
DX: I25.10 Atherosclerotic heart disease of native coronary artery without angina pectoris (principal); I45.2 Bifascicular block; I10 Essential (primary) hypertension; E78.5 Hyperlipidemia, unspecified; Z95.1 Presence of aortocoronary bypass graft; Z95.5 Presence of coronary angioplasty implant and graft

== ENCOUNTER → 2020-10-12 08:24 | Outpatient (CLI) | payer MEDICARE, OTHER, SELFPAY ==
[2020-09-25 14:14] VITALS: BMI 37.4
[2020-10-10 08:47] VITALS: BMI 37.6
[2020-10-12 09:53] LABS: AST(SGOT) 30 U/L (15-37); Alanine Aminotransfer ALT/SGPT 37 U/L (13-56); Albumin, Serum 3.6 g/dL (3.2-5.0); Alkaline Phosphatase 67 U/L (45-117); Bilirubin, Direct 0.13 mg/dL (0.00-0.30); Cholesterol 115 mg/dL (200); Globulin 4.1 g/dL (2.2-4.2); High Density Lipoprotein 34 mg/dL; Protein, Total 7.7 g/dL (6.4-8.2); Triglycerides 236 mg/dL; Very Low Density Lipoprotein 47 mg/dL (5-40)
== END ==
PROVIDERS: PCP Student in an Organized Health Care Education/Training Program; Referring Provider Physician Assistant Medical; Visit Provider Physician Assistant Medical
DX: E78.00 Pure hypercholesterolemia, unspecified (principal)
CPT/HCPCS: 36415; 80061; 80076

== ENCOUNTER 2020-10-20 09:15 | Outpatient (RCR) | payer MEDICARE, OTHER, SELFPAY ==
[2020-09-25 14:14] VITALS: BMI 37.4
== END 2020-10-20 23:59 ==
LOC: CR 09:15
PROVIDERS: PCP Student in an Organized Health Care Education/Training Program; Referring Provider Internal Medicine Cardiovascular Disease; Visit Provider Internal Medicine Cardiovascular Disease
DX: I25.10 Atherosclerotic heart disease of native coronary artery without angina pectoris (principal); I45.2 Bifascicular block; I10 Essential (primary) hypertension; E78.5 Hyperlipidemia, unspecified; Z95.1 Presence of aortocoronary bypass graft; Z95.5 Presence of coronary angioplasty implant and graft
CPT/HCPCS: 93798

== ENCOUNTER → 2020-11-07 07:59 | Outpatient (CLI) | payer MEDICARE, OTHER, SELFPAY ==
[2020-10-10 08:47] VITALS: BMI 37.6
[2020-10-25 06:21] VITALS: BMI 37.8
[2020-11-07 08:24] LABS: Hematocrit 44.5 % (37-47); Hemoglobin 14.1 g/dL (12.0-15.0); Mean Corp Hgb Conc 31.7 g/dL (32-36); Mean Corpuscular Hgb 28.6 pg (27.0-32.0); Mean Corpuscular Volume 90.3 fL (81-99); Mean Platelet Vol. 9.9 fl (6.2-12.0); Platelet Count 229 K/mm3 (150-450); RBC Distribution Width CV 14.5 % (11.6-14.6); Red Blood Count 4.93 M/mm3 (4.2-5.4); White Blood Count 7.1 K/mm3 (4.4-11.0)
[2020-11-07 08:35] LABS: Protein, Urine (Random) 6.7 mg/dL (<11.9); Protein:Creat Ratio 120 mg/g CRE (0-200)
[2020-11-07 08:42] LABS: Albumin, Serum 3.6 g/dL (3.2-5.0); BUN 29 mg/dL (7-18); BUN/Creat Ratio 22.3 RATIO (10-20); Calcium,Total 9.5 mg/dL (8.5-10.1); Chloride 104 mmol/L (98-107); EST Glomerular Filtration Rate 42 mL/min (>60); Est Glom Filt Rate - Afr Amer 51 mL/min (>60); Glucose 109 mg/dL (74-106); Phosphorus 4.1 mg/dL (2.5-4.9); Potassium 3.9 mmol/L (3.5-5.1); Sodium Level 138 mmol/L (136-145)
[2020-11-07 08:47] LABS: Hemoglobin A1c 6.1 % (3.8-5.6)
[2020-11-07 10:02] LABS: Vitamin D,25 Hydroxy 41.5 ng/mL
== END ==
PROVIDERS: PCP Student in an Organized Health Care Education/Training Program; Referring Provider Student in an Organized Health Care Education/Training Program; Visit Provider Student in an Organized Health Care Education/Training Program
DX: N18.30 Chronic kidney disease, stage 3 unspecified (principal); R73.03 Prediabetes
CPT/HCPCS: 36415; 80069; 82306; 82570; 83036; 83970; 84156; 85027

== ENCOUNTER 2020-11-17 09:15 | Outpatient (RCR) | payer MEDICARE, OTHER, SELFPAY ==
[2020-09-25 14:14] VITALS: BMI 37.4
[2020-10-10 08:47] VITALS: BMI 37.6
--- NOTE | 2020-10-25 06:15 | PCM.CR.ITP ---
Diagnosis Exercise - 30-day Assessment - Visit Date of Eval: 10/25/20 Session #:: 12 - Physician Prescribed Exercise Modalities: NuStep, SciFit Frequency: 3x/week for 12 weeks [36 sessions] Intensity: 60-80% of age predicted maximum heart rate reserve Current METSs:: 4.0 increase from 3.0 Target Heart Rate:: 94-122 Current RPE:: 12-13 Maximum Excercise HR:: 79 Resting Blood Pressure: 128/60 Maximum Exercise Blood Pressure: 140/72 EKG Type: Sinus lg to NSR with BBB occas. PACs noted. - Outcomes & Goals Goals:: Verbalizes understanding of THR, RPE & goal METS by session 6, Documents in home exercise log/reports 30 min aerobic 5 day/wk by DC, Demonstrates accurate pulse taking by DC - Intervention & Plan Exercise Program Goals: Instruct on personal THR & RPE, Instruct on MET level & personal MET goal, Show patient to take own pulse /validate performance until accurate, Instruct on home exercise - 30-day Reassessments 30 day Reassessments:: Progressing - Physical Activity Home Exercise Physical Activity - Home Exercise: Safe Exercise, Warm-up, Self-monitoring, Cool-Down, Home Exercise > 30 min Daily, Sitting Time <3 hours/daily - Outcomes & Goals Outcomes/Goals: Demonstrates correct Warm-up/exercise Cool-Down (S3) if = 2.5 METs, Verbalizes symptoms of exercise intolerance by Session 3 (S3), Demonstrate safe equipment use (S3) & follows exercise prescrition (6) - Intervention & Plan Plan/Intervention: Instruct warm-up & cool-down if exercising at > 2 METs, Instruct on symptoms of exercise intolerance & actions to take, Instruct & monitor on saf, Assess intial functional capacity & safety risk - 30-day Reassessments 30 day Reassessments:: Progressing Nutrition - Initial Assessment Nutrition - 30-Day Assessment - Program Goals Nutrition Program Goals: LDL <100 optimal. 100 - 129 Near optimal. 130 - 159 Borderline High. 160 - 189 High. Total Cholesterol <200 desirable. 200 - 239 Borderline High. >/= 240 High. HDL < 40 Low >/=60 High. Triglycerides <150 desirable. <199 optimal. VlDL 5 - 40. HgbA1C <7%. BMI <25 Patient has diagnosis of Hyperlipidemia (ICD E78)?: Yes - Visit Date of Assessment:: 10/25/20 Session #:: 12 - Cholesterol/Lipids Triglycerides (mg/dL): 239 - 11/09/2019 Total Cholesterol (mg/dL): 122 LDL Cholesterol (mg/dL): 42 HDL Cholesterol (mg/dL): 32 Determine presence & major risk factors that modify LDL goal: Hypertension or hypertensive medication, Low HDL cholesterol <40 mg/dL*, Family history of premature CHD in Male < 55 years: female <65 yearsFa, Age men > 45 years; women >/= 55 years Outcomes/Goals: Pt IDs own risk factors & lifestyle modifications by Session 10, Verbalizes symptoms of angina & response by session 3., Pt independently manages Intervention/Plan: Instruct on personal lipid levels & lipid goals/NCEP guidelines, Instruct on cholesterol Referral to dietitian:: Yes - Medical Nutrition Therapy 30-day Reassessments:: Progressing - Diabetes (Other Core Measures) Diabetes Type: Not Applicable - Weight Mgt (Other Care) Not Applicable: No Height: 4 ft 10 in Weight:: 181 lb BMI: 37.8 Diagnosis Overweight/Obesity BMI> 30% ICD-10 E66: Yes Diagnosis High BMI/Morbid Obesity BMI> 35% ICD-10 Z68: Yes Outcomes/Goals: Pt sets, maintains & shows weight loss goal & trend during rehab Intervention/Plan: Instruct on ideal BMI & set weight loss goal w/patient, Assist pt to ID & incorporate diet changes for weight loss by S9, Refer to Structured Weight Loss program as appropriate, Encourage goal of using 250-300dcal per session for weight loss 30 day Reassessments:: Progressing - Healthy Eating Habits Will attend diet classes:: Yes Outcomes/Goals:: Consume diet rich in vegs,fruits,whole grain/high fiber,fish,lean meat, Limit sat/trans fats,cholesterol & added salts & sugars Intervention/Plan:: Assess current eating habits 30-day Reassessments:: Progressing Nutrition - 60-Day Assessment Nutrition - 90-Day Assessment Nutrition - Final Assessment Medical - Initial Assessment Medical- 30-Day Assessment - Visit Date of Eval: 10/25/20 Session #:: 12 - Medication Compliance Preventative Medication(s):: Aspirin, Ticagrelor/P2Y12 inhibitor, Statin/lipid, Beta belem H/O mental health issues: depression, anxiety, or addiction?: No Doesn?t believe in the benefits of treatment?: No Believes medications are unnecessary or harmful?: No Has a concern about medication side effects?: No Expresses concern over the cost of medications?: No Outcomes/Goals: Verbalizes medications,desired effect & common side effects @ DC, Pt self-reports following medication regimen, Keeps card in wallet w/medications listed by DC Interventions/plans: Instruct on medication effects & side effects, Review medication list w/patient every two weeks, Instruct importance of taking meds as ordered & assist problem solving 30-day Reassessments:: Progressing - Tobacco Use Tobacco Use: Non-smoker - Hypertension Hypertension Diagnosis:: Hypertension ICD-10 I10 Resting Blood Pressure:: 128/60 [employer] [place] [employer] Hypertension Guidelines: [place] [employer] Hypertension Guidelines. Normal BP Less than 120/80. Elevated BP 120/80. Hypertension Stage 1: BP 130-139/80-89. Hypertesnion Stage 2: BP 140 or higher/90 or higher. Hypertension Crisis: BP higher than 180/120 Peak Exercise Blood Pressure:: 140/72 Outcomes/Goals: Able to verbalize/achieve optimal blood pressure <130/80, Incorporates diet changes & exercise for blood pressure control by DC Interventions/plan: Instruct on optimal blood pressure, hypertension & medications, Instruct on effects of sodium, alcohol, stress, exercise &hypertension 30 day Reassessments:: Progressing - Tobacco Cessation Referral Smoking Cessation Referral:: No Individual Education/Counseling:: No Education Schedule Given:: Yes Medical- 60-Day Assessment Medical- 90-Day Assessment Medical - Final Assessment Psychosocial - Initial Assess Psychosocial - 30-Day Assess - VIsit Date of Eval: 10/25/20 Session #:: 12 Not Applicable: Yes History of previous Mental disease:: No - Psychosocial Test Tool Used:: PHQ-9 Questionnaire phq-9 Severity: Severity. 1-4 Minimal Depression. 5-9 Mild Depression. 10-14 Moderate Depression. 15-19 Moderately Sever Depression. 20-27 Severe Depression. Rule: - Referral to Behavioral Health PS - Interventions: Yes Attend Stress Management Classes, No Referral to Behavioral Health if PHQ-9 score >9:, No Referral to [facility], No Referral to Physician if PHQ-9 if score is 5-9: - Outcomes/Goals: See list Psychosocial Outcomes/Goals:: ID's personal stressors & 2 strategies to manage stress by discharge - Intervention/Plan: See List Interventions/Plan:: Assess stressors,coping strategies & signs of derpression on admission, Instruct/assist pt to develop coping & personal stress Mgt strategies, Instruct patient to recognize signs & symptoms of depression, Instruct patient to recog - 30-day Reassessments: 30 day Reassessments:: Progressing Psychosocial - 60-Day Assess Psychosocial - 90-Day Assess Psychosocial - Final Assessmen Patient Health Questionnaire 30-Day Re-eval Assessment 1. Little interest or pleasure in doing things: Not at all 2. Feeling down, depressed, or hopeless: Not at all 3. Trouble falling or staying asleep, or sleeping too much: Not at all 4. Feeling tired or having little energy: Not at all 5. Poor appetite or overeating: Not at all 6. Feeling bad about yourself -- or that you are a failure or have let yourself or your family down: Not at all 7. Trouble concentrating on things, such as reading the newspaper or watching television: Not at all 8. Moving or speaking so slowly that other people could have noticed. Or the opposite - being so fidgety or restless that you have been moving around a lot more than usual: Not at all 9. Thoughts that you would be better off , or of hurting yourself in some way: Not at all Total Score: 0 Self-Efficacy 30-Day Re-eval Assessment We would like to know how confident you are in doing certain activities. Please select your confidence level for:: Select your confidence level for the following using the scale 1-10 where 1 is not at all confident and 10 is totally confident. Your score is the average of all 6 responses. Fatigue: How confident are you that you can keep the fatigue caused by your disease from interfering with the things you want to do? Select Number: 7 Physical Discomfort or Pain: How confident are you that you can keep the physical discomfort or pain of your disease from interfering with the things you want to do? Select Number: 7 Emotional Distress: How confident are you that you can keep the emotional distress caused by your disease from interfering with the things you want to do? Select Number: 9 Other Symptoms or Health Problems: How confident are you that you can keep other symptoms or health problems from interfering with the things you want to do? Select Number: 8 Different Tasks and Activities: How confident are you that you can do the different tasks and activities needed to manage your health condition so as to reduce your need to see a doctor? Select Number: 9 Medication: How confident are you that you can do things other than just taking medication to reduce how much your illness affects your everyday life? Select Number: 8 Total Score:: 8 Nutrition Survey
[2020-10-25 06:21] VITALS: BP 128/60; BP 140/72; BMI 37.8
== END 2020-11-20 23:59 ==
LOC: CR 09:15
PROVIDERS: PCP Student in an Organized Health Care Education/Training Program; Referring Provider Internal Medicine Cardiovascular Disease; Visit Provider Internal Medicine Cardiovascular Disease
DX: I25.10 Atherosclerotic heart disease of native coronary artery without angina pectoris (principal); I45.2 Bifascicular block; I10 Essential (primary) hypertension; E78.5 Hyperlipidemia, unspecified; Z95.1 Presence of aortocoronary bypass graft; Z95.5 Presence of coronary angioplasty implant and graft
CPT/HCPCS: 93798

== ENCOUNTER → 2020-12-18 09:51 | Outpatient (CLI) | payer MEDICARE, OTHER, SELFPAY ==
[2020-10-10 08:47] VITALS: BMI 37.6
[2020-11-24 11:18] VITALS: BMI 37.8
== END ==
PROVIDERS: PCP Student in an Organized Health Care Education/Training Program; Referring Provider Internal Medicine Cardiovascular Disease; Visit Provider Internal Medicine Cardiovascular Disease
DX: I49.9 Cardiac arrhythmia, unspecified (principal)
CPT/HCPCS: 93225; 93226

== ENCOUNTER 2020-12-20 09:15 | Outpatient (RCR) | payer MEDICARE, OTHER, SELFPAY ==
[2020-10-10 08:47] VITALS: BMI 37.6
[2020-10-25 06:21] VITALS: BMI 37.8
[2020-11-21 00:34] VITALS: BP 128/60; BP 140/72
--- NOTE | 2020-11-24 11:07 | PCM.CR.ITP ---
Diagnosis Exercise - 60-day Assessment - Visit Date of Eval: 11/24/20 Session #:: 24 - Physician Prescribed Exercise Modalities: NuStep, SciFit Frequency: 3x/week for 12 weeks [36 sessions] Intensity: 60-80% of age predicted maximum heart rate reserve Current METSs:: 4.0 Target Heart Rate:: 94-122 Current RPE:: 11-13 Maximum Excercise HR:: 86 Resting Blood Pressure: 136/50 - REMAINS ELEVATED /MEDS Maximum Exercise Blood Pressure: 150/66 EKG Type: NSR to SINUS TACH W/BBB OCCAS. PACs. - Outcomes & Goals Goals:: Verbalizes understanding of THR, RPE & goal METS by session 6, Documents in home exercise log/reports 30 min aerobic 5 day/wk by DC, Demonstrates accurate pulse taking by DC - Intervention & Plan Exercise Program Goals: Instruct on personal THR & RPE, Instruct on MET level & personal MET goal, Show patient to take own pulse /validate performance until accurate, Instruct on home exercise - 30-day Reassessments 30 day Reassessments:: Progressing - Physical Activity Home Exercise Physical Activity - Home Exercise: Safe Exercise, Warm-up, Self-monitoring, Cool-Down, Home Exercise > 30 min Daily, Sitting Time <3 hours/daily - Outcomes & Goals Outcomes/Goals: Demonstrates correct Warm-up/exercise Cool-Down (S3) if = 2.5 METs, Verbalizes symptoms of exercise intolerance by Session 3 (S3), Demonstrate safe equipment use (S3) & follows exercise prescrition (6) - Intervention & Plan Plan/Intervention: Instruct warm-up & cool-down if exercising at > 2 METs, Instruct on symptoms of exercise intolerance & actions to take, Instruct & monitor on saf, Assess intial functional capacity & safety risk - 30-day Reassessments 30 day Reassessments:: Progressing Nutrition - Initial Assessment Nutrition - 30-Day Assessment Nutrition - 60-Day Assessment - Program Goals Nutrition Program Goals: LDL <100 optimal. 100 - 129 Near optimal. 130 - 159 Borderline High. 160 - 189 High. Total Cholesterol <200 desirable. 200 - 239 Borderline High. >/= 240 High. HDL < 40 Low >/=60 High. Triglycerides <150 desirable. <199 optimal. VlDL 5 - 40. HgbA1C <7%. BMI <25 Patient has diagnosis of Hyperlipidemia (ICD E78)?: Yes - Visit Date of Assessment:: 11/24/20 Session #:: 24 - Cholesterol/Lipids Triglycerides (mg/dL): 239 Total Cholesterol (mg/dL): 122 LDL Cholesterol (mg/dL): 42 - 42 HDL Cholesterol (mg/dL): 32 Determine presence & major risk factors that modify LDL goal: Hypertension or hypertensive medication, Low HDL cholesterol <40 mg/dL*, Family history of premature CHD in Male < 55 years: female <65 yearsFa, Age men > 45 years; women >/= 55 years Outcomes/Goals: Pt IDs own risk factors & lifestyle modifications by Session 10, Verbalizes symptoms of angina & response by session 3., Pt independently manages Intervention/Plan: Instruct on personal lipid levels & lipid goals/NCEP guidelines, Instruct on cholesterol Referral to dietitian:: Yes 30-day Reassessments:: Progressing - Diabetes (Other Core Measures) Diabetes Type: Not Applicable - Weight Mgt (Other Care) Not Applicable: No Height: 4 ft 10 in Weight:: 181 lb BMI: 37.8 Diagnosis Overweight/Obesity BMI> 30% ICD-10 E66: Yes Diagnosis High BMI/Morbid Obesity BMI> 35% ICD-10 Z68: Yes Outcomes/Goals: Pt sets, maintains & shows weight loss goal & trend during rehab Intervention/Plan: Instruct on ideal BMI & set weight loss goal w/patient, Refer to Structured Weight Loss program as appropriate, Encourage goal of using 250-300dcal per session for weight loss 30 day Reassessments:: Progressing - Healthy Eating Habits Will attend diet classes:: Yes Outcomes/Goals:: Consume diet rich in vegs,fruits,whole grain/high fiber,fish,lean meat, Limit sat/trans fats,cholesterol & added salts & sugars Intervention/Plan:: Assess current eating habits 30-day Reassessments:: Progressing Nutrition - 90-Day Assessment Nutrition - Final Assessment Medical - Initial Assessment Medical- 30-Day Assessment Medical- 60-Day Assessment - Visit Date of Eval: 11/24/20 Session #:: 24 - Medication Compliance Preventative Medication(s):: Aspirin, Statin/lipid, Beta belem H/O mental health issues: depression, anxiety, or addiction?: Yes Doesn?t believe in the benefits of treatment?: No Believes medications are unnecessary or harmful?: No Has a concern about medication side effects?: No Expresses concern over the cost of medications?: No Outcomes/Goals: Verbalizes medications,desired effect & common side effects @ DC, Pt self-reports following medication regimen, Keeps card in wallet w/medications listed by DC Interventions/plans: Instruct on medication effects & side effects, Review medication list w/patient every two weeks, Instruct importance of taking meds as ordered & assist problem solving 30-day Reassessments:: Progressing - Tobacco Use Tobacco Use: Non-smoker - Hypertension Hypertension Diagnosis:: Hypertension ICD-10 I10 Resting Blood Pressure:: 136/50 [place] [employer] Hypertension Guidelines: [place] [employer] Hypertension Guidelines. Normal BP Less than 120/80. Elevated BP 120/80. Hypertension Stage 1: BP 130-139/80-89. Hypertesnion Stage 2: BP 140 or higher/90 or higher. Hypertension Crisis: BP higher than 180/120 Peak Exercise Blood Pressure:: 150/66 Outcomes/Goals: Able to verbalize/achieve optimal blood pressure <130/80, Incorporates diet changes & exercise for blood pressure control by DC Interventions/plan: Instruct on optimal blood pressure, hypertension & medications, Instruct on effects of sodium, alcohol, stress, exercise &hypertension 30 day Reassessments:: Progressing - Tobacco Cessation Referral Smoking Cessation Referral:: No Individual Education/Counseling:: No Education Schedule Given:: Yes Medical- 90-Day Assessment Medical - Final Assessment Psychosocial - Initial Assess Psychosocial - 30-Day Assess Psychosocial - 60-Day Assess - VIsit Date of Eval: 11/24/20 Session #:: 25 Not Applicable: Yes - Psychosocial Test Tool Used:: PHQ-9 Questionnaire phq-9 Severity: Severity. 1-4 Minimal Depression. 5-9 Mild Depression. 10-14 Moderate Depression. 15-19 Moderately Sever Depression. 20-27 Severe Depression. Rule: - Referral to Behavioral Health PS - Interventions: Yes Attend Stress Management Classes, No Referral to Behavioral Health if PHQ-9 score >9:, No Referral to [facility], No Referral to Physician if PHQ-9 if score is 5-9: - Outcomes/Goals: See list Psychosocial Outcomes/Goals:: ID's personal stressors & 2 strategies to manage stress by discharge - Intervention/Plan: See List Interventions/Plan:: Assess stressors,coping strategies & signs of derpression on admission, Instruct/assist pt to develop coping & personal stress Mgt strategies, Instruct patient to recognize signs & symptoms of depression, Instruct patient to recog - 30-day Reassessments: 30 day Reassessments:: Progressing Psychosocial - 90-Day Assess Psychosocial - Final Assessmen Patient Health Questionnaire 60-Day Re-eval Assessment 1. Little interest or pleasure in doing things: Not at all 2. Feeling down, depressed, or hopeless: Not at all 3. Trouble falling or staying asleep, or sleeping too much: Not at all 4. Feeling tired or having little energy: Not at all 5. Poor appetite or overeating: Not at all 6. Feeling bad about yourself -- or that you are a failure or have let yourself or your family down: Not at all 7. Trouble concentrating on things, such as reading the newspaper or watching television: Not at all 8. Moving or speaking so slowly that other people could have noticed. Or the opposite - being so fidgety or restless that you have been moving around a lot more than usual: Not at all 9. Thoughts that you would be better off , or of hurting yourself in some way: Not at all How difficult have these problems made it for you to do your work, take care of things at home, or get along with other people?: Not difficult at all Total Score: 0 Self-Efficacy 60-Day Re-eval Assessment We would like to know how confident you are in doing certain activities. Please select your confidence level for:: Select your confidence level for the following using the scale 1-10 where 1 is not at all confident and 10 is totally confident. Your score is the average of all 6 responses. Fatigue: How confident are you that you can keep the fatigue caused by your disease from interfering with the things you want to do? Select Number: 8 Physical Discomfort or Pain: How confident are you that you can keep the physical discomfort or pain of your disease from interfering with the things you want to do? Select Number: 8 Emotional Distress: How confident are you that you can keep the emotional distress caused by your disease from interfering with the things you want to do? Select Number: 10 Other Symptoms or Health Problems: How confident are you that you can keep other symptoms or health problems from interfering with the things you want to do? Select Number: 9 Different Tasks and Activities: How confident are you that you can do the different tasks and activities needed to manage your health condition so as to reduce your need to see a doctor? Select Number: 9 Medication: How confident are you that you can do things other than just taking medication to reduce how much your illness affects your everyday life? Select Number: 9 Total Score:: 8 Nutrition Survey
[2020-11-24 11:18] VITALS: BP 136/50; BP 150/66; BMI 37.8
== END 2020-12-20 23:59 ==
LOC: CR 09:15
PROVIDERS: PCP Student in an Organized Health Care Education/Training Program; Referring Provider Internal Medicine Cardiovascular Disease; Visit Provider Internal Medicine Cardiovascular Disease
DX: I25.10 Atherosclerotic heart disease of native coronary artery without angina pectoris (principal); I45.2 Bifascicular block; I10 Essential (primary) hypertension; E78.5 Hyperlipidemia, unspecified; Z95.1 Presence of aortocoronary bypass graft; Z95.5 Presence of coronary angioplasty implant and graft
CPT/HCPCS: 93798

== ENCOUNTER 2021-01-01 09:30 | Outpatient (RCR) | payer MEDICARE, OTHER, SELFPAY ==
[2020-10-10 08:47] VITALS: BMI 37.6
[2020-11-24 11:18] VITALS: BMI 37.8
[2020-12-21 00:25] VITALS: BP 136/50; BP 150/66
--- NOTE | 2020-12-22 10:29 | CR.ITP_ITS ---
Diagnosis Exercise - 90-day Assessment - Visit Date of Eval: 12/22/20 Session #:: 33 - Physician Prescribed Exercise Modalities: NuStep, SciFit Frequency: 3x/week for 12 weeks [36 sessions] Intensity: 60-80% of age predicted maximum heart rate reserve Current METSs:: 4.0 Target Heart Rate:: 94-122 Current RPE:: 13 Maximum Excercise HR:: 79 Resting Blood Pressure: 136/50 Maximum Exercise Blood Pressure: 142/54 EKG Type: NSR with BBB rare PACs - Outcomes & Goals Goals:: Verbalizes understanding of THR, RPE & goal METS by session 6, Documents in home exercise log/reports 30 min aerobic 5 day/wk by DC, Demonstrates accurate pulse taking by DC - Intervention & Plan Exercise Program Goals: Instruct on personal THR & RPE, Instruct on MET level & personal MET goal, Show patient to take own pulse /validate performance until accurate, Instruct on home exercise - 30-day Reassessments 30 day Reassessments:: Met - Physical Activity Home Exercise Physical Activity - Home Exercise: Safe Exercise, Warm-up, Self-monitoring, Cool-Down, Home Exercise > 30 min Daily, Sitting Time <3 hours/daily - Outcomes & Goals Outcomes/Goals: Demonstrates correct Warm-up/exercise Cool-Down (S3) if = 2.5 METs, Verbalizes symptoms of exercise intolerance by Session 3 (S3), Demonstrate safe equipment use (S3) & follows exercise prescrition (6) - Intervention & Plan Plan/Intervention: Instruct warm-up & cool-down if exercising at > 2 METs, Instruct on symptoms of exercise intolerance & actions to take, Instruct & monitor on saf, Assess intial functional capacity & safety risk - 30-day Reassessments 30 day Reassessments:: Met Nutrition - Initial Assessment Nutrition - 30-Day Assessment Nutrition - 60-Day Assessment Nutrition - 90-Day Assessment - Program Goals Nutrition Program Goals: LDL <100 optimal. 100 - 129 Near optimal. 130 - 159 Borderline High. 160 - 189 High. Total Cholesterol <200 desirable. 200 - 239 Borderline High. >/= 240 High. HDL < 40 Low >/=60 High. Triglycerides <150 desirable. <199 optimal. VlDL 5 - 40. HgbA1C <7%. BMI <25 Patient has diagnosis of Hyperlipidemia (ICD E78)?: Yes - Visit Date of Assessment:: 12/22/20 Session #:: 33 - Cholesterol/Lipids Determine presence & major risk factors that modify LDL goal: Hypertension or hypertensive medication, Family history of premature CHD in Male < 55 years: female <65 yearsFa, Age men > 45 years; women >/= 55 years Outcomes/Goals: Pt IDs own risk factors & lifestyle modifications by Session 10, Verbalizes symptoms of angina & response by session 3., Pt independently manages Intervention/Plan: Instruct on personal lipid levels & lipid goals/NCEP guidelines, Instruct on cholesterol 30-day Reassessments:: Progressing - Diabetes (Other Core Measures) Diabetes Type: Not Applicable - Weight Mgt (Other Care) Not Applicable: Yes Height: 4 ft 10 in Weight:: 179 lb BMI: 37.4 Diagnosis Overweight/Obesity BMI> 30% ICD-10 E66: Yes Diagnosis High BMI/Morbid Obesity BMI> 35% ICD-10 Z68: Yes Outcomes/Goals: Pt sets, maintains & shows weight loss goal & trend during rehab Intervention/Plan: Instruct on ideal BMI & set weight loss goal w/patient, Ass ist pt to ID & incorporate diet changes for weight loss by S9, Encourage goal of using 250-300dcal per session for weight loss 30 day Reassessments:: Progressing - Healthy Eating Habits Will attend diet classes:: Yes Outcomes/Goals:: Consume diet rich in vegs,fruits,whole grain/high fiber,fish,lean meat, Limit sat/trans fats,cholesterol & added salts & sugars Intervention/Plan:: Assess current eating habits 30-day Reassessments:: Progressing - Education Gave educational materials for:: Healthy eating Nutrition - Final Assessment Medical - Initial Assessment Medical- 30-Day Assessment Medical- 60-Day Assessment Medical- 90-Day Assessment - Visit Date of Eval: 12/22/20 Session #:: 33 - Medication Compliance Preventative Medication(s):: Aspirin, Ticagrelor/P2Y12 inhibitor, Statin/lipid, Beta belem H/O mental health issues: depression, anxiety, or addiction?: No Doesn?t believe in the benefits of treatment?: No Believes medications are unnecessary or harmful?: No Has a concern about medication side effects?: No Expresses concern over the cost of medications?: No Outcomes/Goals: Verbalizes medications,desired effect & common side effects @ DC, Pt self-reports following medication regimen, Keeps card in wallet w/medica tions listed by DC Interventions/plans: Instruct on medication effects & side effects, Review medication list w/patient every two weeks, Instruct importance of taking meds as ordered & assist problem solving 30-day Reassessments:: Progressing - Tobacco Use Tobacco Use: Non-smoker - Hypertension Hypertension Diagnosis:: Hypertension ICD-10 I10 Resting Blood Pressure:: 124/70 [place] [employer] Hypertension Guidelines: [place] [employer] Hypertension Guidelines. Normal BP Less than 120/80. Elevated BP 120/80. Hypertension Stage 1: BP 130-139/80-89. Hypertesnion Stage 2: BP 140 or higher/90 or higher. Hypertension Crisis: BP higher than 180/120 Peak Exercise Blood Pressure:: 142/54 Outcomes/Goals: Able to verbalize/achieve optimal blood pressure <130/80, Incorporates diet changes & exercise for blood pressure control by DC Interventions/plan: Instruct on optimal blood pressure, hypertension & medications, Instruct on effects of sodium, alcohol, stress, exercise &hypertension 30 day Reassessments:: Progressing - Tobacco Cessation Referral Smoking Cessation Referral:: No Individual Education/Counseling:: No Education Schedule Given:: Yes Medical - Final Assessment Psychosocial - Initial Assess Psychosocial - 30-Day Assess Psychosocial - 60-Day Assess Psychosocial - 90-Day Assess - VIsit Date of Eval: 12/22/20 Session #:: 33 Not Applicable: Yes History of previous Mental disease:: No - Psychosocial Test Tool Used:: PHQ-9 Questionnaire phq-9 Severity: Severity. 1-4 Minimal Depression. 5-9 Mild Depression. 10-14 Moderate Depression. 15-19 Moderately Sever Depression. 20-27 Severe Depression. Rule: - Referral to Behavioral Health PS - Interventions: Yes Attend Stress Management Classes, No Referral to Behavioral Health if PHQ-9 score >9:, No Referral to [facility], No Referral to Physician if PHQ-9 if score is 5-9: - Outcomes/Goals: See list Psychosocial Outcomes/Goals:: ID's personal stressors & 2 strategies to manage stress by discharge - Intervention/Plan: See List Interventions/Plan:: Assess stressors,coping strategies & signs of derpression on admission, Instruct/assist pt to develop coping & personal stress Mgt strategies, Instruct patient to recognize signs & symptoms of depression, Instruct patient to recog - 30-day Reassessments: 30 day Reassessments:: Progressing Psychosocial - Final Assessmen Patient Health Questionnaire 90-Day Re-eval Assessment 1. Little interest or pleasure in doing things: Not at all 2. Feeling down, depressed, or hopeless: Not at all 3. Trouble falling or staying asleep, or sleeping too much: Not at all 4. Feeling tired or having little energy: Not at all 5. Poor appetite or overeating: Not at all 6. Feeling bad about yourself -- or that you are a failure or have let yourself or your family down: Not at all 7. Trouble concentrating on things, such as reading the newspaper or watching television: Not at all 8. Moving or speaking so slowly that other people could have noticed. Or the opposite - being so fidgety or restless that you have been moving around a lot more than usual: Not at all 9. Thoughts that you would be better off , or of hurting yourself in some way: Not at all Total Score: 0 Self-Efficacy 90-Day Re-eval Assessment We would like to know how confident you are in doing certain activities. Please select your confidence level for:: Select your confidence level for the following using the scale 1-10 where 1 is not at all confident and 10 is totally confident. Your score is the average of all 6 responses. Fatigue: How confident are you that you can keep the fatigue caused by your disease from interfering with the things you want to do? Select Number: 10 Physical Discomfort or Pain: How confident are you that you can keep the physical discomfort or pain of your disease from interfering with the things you want to do? Select Number: 10 Emotional Distress: How confident are you that you can keep the emotional distress caused by your disease from interfering with the things you want to do? Select Number: 10 Other Symptoms or Health Problems: How confident are you that you can keep other symptoms or health problems from interfering with the things you want to do? Select Number: 10 Different Tasks and Activities: How confident are you that you can do the different tasks and activities needed to manage your health condition so as to reduce your need to see a doctor? Select Number: 10 Medication: How confident are you that you can do things other than just taking medication to reduce how much your illness affects your everyday life? Select Number: 10 Total Score:: 10 Nutrition Survey
[2020-12-22 10:36] VITALS: BP 124/70; BP 136/50; BP 142/54; BMI 37.4
== END 2021-01-20 23:59 ==
LOC: CR 09:30
PROVIDERS: PCP Student in an Organized Health Care Education/Training Program; Referring Provider Internal Medicine Cardiovascular Disease; Visit Provider Internal Medicine Cardiovascular Disease
DX: I25.10 Atherosclerotic heart disease of native coronary artery without angina pectoris (principal); I45.2 Bifascicular block; I10 Essential (primary) hypertension; E78.5 Hyperlipidemia, unspecified; Z95.1 Presence of aortocoronary bypass graft; Z95.5 Presence of coronary angioplasty implant and graft
CPT/HCPCS: 93798

== ENCOUNTER → 2021-06-20 10:13 | Outpatient (CLI) | payer MEDICARE, OTHER, SELFPAY ==
[2020-12-22 10:36] VITALS: BMI 37.4
--- NOTE | 2021-06-20 10:16 | BI_ITS ---
MAMMOGRAPHY - BILATERAL SCREENING 3-D TOMOSYNTHESIS REASON FOR EXAM: Female, 75 years old. SCREEN PERTINENT HISTORY: No significant family history. TECHNIQUE: 2-D mammograms and 3-D Tomosynthesis of the breast (s) were performed. CAD was performed. COMPARISON: 05/08/2020 FINDINGS: The breast composition is composed of scattered fibroglandular density. Scattered benign calcifications are seen. No dense spiculated masses or suspicious microcalcifications are identified. No architectural distortion is identified. There is no skin thickening or retraction. There has been no significant change since the prior study. BI/SCRN MAMM (CAD)W/ZACARIAS BILAT IMPRESSION: No mammographic signs of malignancy. Routine yearly mammograms recommended. ASSESSMENT CATEGORY: BIRADS Category 1: Negative. A letter regarding these results will be sent to the patient by the facility within 30 days. FOLLOW UP RECOMMENDATION: Yearly follow up mammogram recommended. (A) Approximately 10% of breast cancers are not detected by mammography. A normal mammogram should not delay biopsy of a clinically suspicious abnormality. Electronically Signed: Gerry Somers MD at 11:48 EST Tel , Service support ,
--- NOTE | 2021-06-20 10:25 | BD_ITS ---
STUDY: DUAL ENERGY X-RAY ABSORPTIOMETRY / DXA REASON FOR EXAM: Female, 75 years old. Z780 patient is postmenopausal. TECHNIQUE: Bone Mineral Density (BMD) measurements of left forearm and bilateral hips were obtained. COMPARISON: Comparison is made with prior study dated 07/30/2016. FINDINGS: Left Femur Total: g/cm2 (0.981) / T-score (0.3) / Z-score (2.2) Left Femoral Neck: g/cm2 (0.784) / T-score (-0.6) / Z-score (1.6) Right Femur Total: g/cm2 (0.996) / T-score (0.4) / Z-score (2.3) Right Femoral Neck: g/cm2 (0.722) / T-score (-1.1) / Z-score (1.0) Left Forearm: g/cm2 (0.542) / T-score (-0.7) / Z-score (2.0) The T-Scores on the most recent prior examination were: Left Femur Total: which represents a worsening of 7.5. Right Femur Total: which represents a worsening of 7.3%. BD/Dexa Bone Density Study IMPRESSION: The patient is considered osteopenic as outlined below according to World [employer] Organization (WHO) criteria with a low fracture risk. There has been worsening of bone density since the previous examination. Reference Information: The T-score is the number of standard deviations above or below the standard which is normal for young adults at their peak bone mineral density. The World Health Organization (WHO) interprets the T-scores as follows: Above -1 Normal bone density Between -1 and -2.5 Osteopenia Equal to / or below -2.5 Osteoporosis As a practical clinical guideline, osteopenia may be graded as follows: Mild -1 through -1.5 Moderate -1.6 through -2.0 Severe -2.1 through -2.4 The Z-score is the number of standard deviations above or below age-matched controls. A Z-score of less than -1.5 would be considered abnormal. References: 1. NIH Osteoporosis and Related Bone Diseases www osteo.org 2. International Society for Clinical Densitometry www iscd.org 3. National Osteoporosis Foundation www nof.org Electronically Signed: Ortiz Waldron MD at 15:40 EST , Service support ,
== END ==
PROVIDERS: PCP Student in an Organized Health Care Education/Training Program; Referring Provider Student in an Organized Health Care Education/Training Program; Visit Provider Student in an Organized Health Care Education/Training Program
DX: Z12.31 Encounter for screening mammogram for malignant neoplasm of breast (principal); Z78.0 Asymptomatic menopausal state; Z13.820 Encounter for screening for osteoporosis; M85.80 Other specified disorders of bone density and structure, unspecified site
CPT/HCPCS: 77063; 77067; 77080

== ENCOUNTER 2021-07-05 08:42 | Outpatient (CLI) | payer MEDICARE, OTHER, SELFPAY ==
[2020-12-22 10:36] VITALS: BMI 37.4
[2021-07-05 10:08] LABS: AST(SGOT) 25 U/L (15-37); Alanine Aminotransfer ALT/SGPT 35 U/L (13-56); Albumin, Serum 3.6 g/dL (3.2-5.0); Alkaline Phosphatase 62 U/L (45-117); Bilirubin, Direct 0.12 mg/dL (0.00-0.30); Cholesterol 118 mg/dL (200); Globulin 3.9 g/dL (2.2-4.2); High Density Lipoprotein 33 mg/dL; Protein, Total 7.5 g/dL (6.4-8.2); Triglycerides 178 mg/dL; Very Low Density Lipoprotein 36 mg/dL (5-40)
== END 2021-07-05 23:59 | disposition short-term general hospital (02) ==
LOC: LAB 08:44
PROVIDERS: PCP Student in an Organized Health Care Education/Training Program; Visit Provider Internal Medicine Cardiovascular Disease
DX: E78.00 Pure hypercholesterolemia, unspecified (principal)
CPT/HCPCS: 36415; 80061; 80076

== ENCOUNTER 2021-09-03 07:05 | Outpatient (CLI) | payer MEDICARE, OTHER, SELFPAY ==
[2020-12-22 10:36] VITALS: BMI 37.4
--- NOTE | 2021-09-03 18:07 | STRESSREP_ITS ---
Stress Test Report Pharmacologic myocardial perfusion stress test. 75-year-old lady with a history of chest pain. Medications: Aspirin metoprolol omeprazole gabapentin rosuvastatin. Stress protocol: Resting EKG demonstrates normal sinus rhythm with a rate of 63 bpm right bundle branch block is noted resting blood pressure is 136/70 mmHg. 0.4 mg of regadenoson was infused per usual protocol followed by rapid intravenous saline flush injection continuous EKG monitoring was performed. The maximum heart rate was 86 bpm which was 59% of max impact at heart rate the maximum workload was 1 metabolic equivalent. At rest there were no ST or T wave changes noted suggest ischemia and at peak infusion nonspecific ST changes were noted with did not meet the criteria for ischemia. No clinical angina was noted. The final blood pressure was 136/70 mmHg. Myocardial perfusion protocol. 10.8 mCi of technetium 99m sestamibi was injected at rest. 0.4 mg of reg adenoson was infused per usual protocol. At peak infusion 32.2 mCi of technetium 99m sestamibi was injected stress images were obtained stress and rest images were reconstructed and compared in the short axis vertical long and horizontal long axis. Gated images were also obtained. Perfusion SPECT analysis: Review of the stress images demonstrate normal uptake of tracer noted in all areas of the myocardium. The resting images similarly demonstrated normal uptake of tracer noted in all areas of the myocardium. No areas of reversibility or previous infarct is noted. Gated SPECT analysis: The gated ejection fraction is 80%. Conclusion: Normal pharmacologic myocardial perfusion stress test. Preserved ejection fraction.
== END 2021-09-03 23:59 | disposition home or self-care (01) ==
LOC: CVS 07:07
PROVIDERS: PCP Student in an Organized Health Care Education/Training Program; Referring Provider Nurse Practitioner Gerontology; Visit Provider Nurse Practitioner Gerontology
DX: R07.9 Chest pain, unspecified (principal); I25.10 Atherosclerotic heart disease of native coronary artery without angina pectoris
CPT/HCPCS: 78452; 93017; A9500; A4216; J2785

== ENCOUNTER → 2021-12-28 | Outpatient (CLI) | payer MEDICARE, OTHER, SELFPAY ==
[2020-12-22 10:36] VITALS: BMI 37.4
[2021-12-28 10:47] LABS: AST(SGOT) 24 U/L (15-37); Alanine Aminotransfer ALT/SGPT 33 U/L (13-56); Albumin, Serum 3.5 g/dL (3.2-5.0); Alkaline Phosphatase 63 U/L (45-117); Bilirubin, Direct 0.12 mg/dL (0.00-0.30); Cholesterol 114 mg/dL (200); Globulin 4.2 g/dL (2.2-4.2); High Density Lipoprotein 31 mg/dL; Protein, Total 7.7 g/dL (6.4-8.2); Triglycerides 177 mg/dL; Very Low Density Lipoprotein 35 mg/dL (5-40)
== END | disposition home or self-care (01) ==
LOC: LAB 09:40
PROVIDERS: PCP Student in an Organized Health Care Education/Training Program; Referring Provider Internal Medicine Cardiovascular Disease; Visit Provider Internal Medicine Cardiovascular Disease
DX: E78.00 Pure hypercholesterolemia, unspecified (principal)
CPT/HCPCS: 36415; 80061; 80076

== ENCOUNTER → 2022-06-05 | Outpatient (CLI) | payer MEDICARE, OTHER, SELFPAY ==
[2020-12-22 10:36] VITALS: BMI 37.4
--- NOTE | 2022-06-05 09:34 | RAD_ITS ---
STUDY: X-RAY - LEFT KNEE REASON FOR EXAM: Female, 76 years old. Pain and stiffness TECHNIQUE: 4 view(s) of the knee. COMPARISON: None however, right knee was also evaluated with plain films. FINDINGS: Normal visualized distal femur. Normal visualized proximal tibia and fibula. Normal proximal tibiofibular articulation. There is severe degenerative arthrosis of the medial femorotibial compartment with severe joint space narrowing. Normal lateral femorotibial compartment. There is mild degenerative arthrosis of the patellofemoral articulation. Evidence of previous saphenous vein harvest RAD/Knee 4 or More Views IMPRESSION: Degenerative arthrosis, particularly in the medial compartment. Degenerative changes are more advanced in the left knee than the right. Electronically Signed: Lavelle Cyr MD at 12:42 EST ,
--- NOTE | 2022-06-05 09:34 | RAD_ITS ---
STUDY: X-RAY - RIGHT KNEE REASON FOR EXAM: Female, 76 years old. Pain and stiffness TECHNIQUE: 4 view(s) of the knee. COMPARISON: None. FINDINGS: Normal visualized distal femur. Normal visualized proximal tibia and fibula. Normal proximal tibiofibular articulation. There is moderate degenerative arthrosis of the medial femorotibial compartment with moderate joint space narrowing. Normal lateral femorotibial compartment. There is mild degenerative arthrosis of the patellofemoral articulation. The soft tissue structures are unremarkable. RAD/Knee 4 or More Views IMPRESSION: Degenerative arthrosis. Electronically Signed: Lavelle Cyr MD at 12:37 EST ,
== END | disposition home or self-care (01) ==
LOC: RAD 09:10
PROVIDERS: PCP Student in an Organized Health Care Education/Training Program; Referring Provider Anesthesiology Pain Medicine; Visit Provider Anesthesiology Pain Medicine
DX: M25.561 Pain in right knee (principal); M25.562 Pain in left knee; M17.0 Bilateral primary osteoarthritis of knee
CPT/HCPCS: 73564

== ENCOUNTER → 2022-07-01 | Outpatient (CLI) | payer MEDICARE, OTHER, SELFPAY ==
[2020-12-22 10:36] VITALS: BMI 37.4
--- NOTE | 2022-07-01 15:02 | CT_ITS ---
EXAMINATION : Head CT w/ and w/out contrast HISTORY : FALL/HEAD TRAUAM/ANTIPLATELET USE COMPARISON : None. TECHNIQUE : Multiple contiguous axial images were obtained from the skull base to the vertex without intravenous contrast. A radiation dose optimization technique was used for this scan. 50 cc of Isovue 370 was used. FINDINGS : There is no evidence for acute intracranial hemorrhage, mass effect, or midline shift. There is no extra-axial fluid collection. There are periventricular white matter changes consistent with chronic microvascular ischemic disease. There is sulcal widening and ventricular enlargement consistent with cerebral atrophy. There is normal bush-white differentiation, without CT evidence of acute ischemia or infarct. The skull base and calvarium are unremarkable. The orbits are unremarkable. The paranasal sinuses are clear. The mastoid air cells are well-aerated. Moderate right frontal scalp hematoma. Small right periorbital scalp hematoma. CT/Brain/Head W/WO Contrast IMPRESSION: Moderate right frontal and small right periorbital scalp hematomas. No fracture or intracranial hemorrhage. Chronic involutional and ischemic changes of the brain. Electronically Signed: Kameron Mcginnis MD at 16:17 EST ,
[2022-07-01 16:11] LABS: CREATININE FINGERSTICK < 0.9 mg/dL (0.55-1.02); EGFR FINGERSTICK > 60.0000 mL/min (>60)
== END | disposition home or self-care (01) ==
PROVIDERS: PCP Student in an Organized Health Care Education/Training Program; Referring Provider Student in an Organized Health Care Education/Training Program; Visit Provider Student in an Organized Health Care Education/Training Program
DX: S00.03XA Contusion of scalp, initial encounter (principal); S00.11XA Contusion of right eyelid and periocular area, initial encounter; W19.XXXA Unspecified fall, initial encounter; Z79.02 Long term (current) use of antithrombotics/antiplatelets
CPT/HCPCS: 70470; Q9967

== ENCOUNTER → 2023-05-27 | Outpatient (CLI) | payer MEDICARE, OTHER, SELFPAY ==
[2020-12-22 10:36] VITALS: BMI 37.4
[2023-05-27 12:47] LABS: AST(SGOT) 31 U/L (15-37); Alanine Aminotransfer ALT/SGPT 34 U/L (13-56); Albumin, Serum 3.5 g/dL (3.2-5.0); Alkaline Phosphatase 75 U/L (45-117); Bilirubin, Direct 0.08 mg/dL (0.00-0.30); Cholesterol 118 mg/dL (200); Globulin 4.2 g/dL (2.2-4.2); High Density Lipoprotein 35 mg/dL; Protein, Total 7.7 g/dL (6.4-8.2); Triglycerides 235 mg/dL; Very Low Density Lipoprotein 47 mg/dL (5-40)
== END | disposition home or self-care (01) ==
LOC: LAB 11:14
PROVIDERS: PCP Student in an Organized Health Care Education/Training Program; Referring Provider Physician Assistant Medical; Visit Provider Physician Assistant Medical
DX: E78.5 Hyperlipidemia, unspecified (principal)
CPT/HCPCS: 36415; 80061; 80076

== ENCOUNTER → 2023-12-09 | Outpatient (CLI) | payer MEDICARE, OTHER, SELFPAY ==
[2020-12-22 10:36] VITALS: BMI 37.4
[2023-12-09 10:01] LABS: AST(SGOT) 32 U/L (15-37); Alanine Aminotransfer ALT/SGPT 39 U/L (13-56); Albumin, Serum 3.6 g/dL (3.2-5.0); Alkaline Phosphatase 72 U/L (45-117); Bilirubin, Direct 0.13 mg/dL (0.00-0.30); Cholesterol 119 mg/dL (200); Globulin 3.9 g/dL (2.2-4.2); High Density Lipoprotein 33 mg/dL; Protein, Total 7.5 g/dL (6.4-8.2); Triglycerides 179 mg/dL; Very Low Density Lipoprotein 36 mg/dL (5-40)
== END | disposition home or self-care (01) ==
LOC: LAB 08:30
PROVIDERS: PCP Student in an Organized Health Care Education/Training Program; Referring Provider Physician Assistant Medical; Visit Provider Physician Assistant Medical
DX: E78.00 Pure hypercholesterolemia, unspecified (principal)
CPT/HCPCS: 36415; 80061; 80076

== ENCOUNTER → 2024-04-05 | Outpatient (CLI) | payer MEDICARE, OTHER, SELFPAY ==
[2020-12-22 10:36] VITALS: BMI 37.4
--- NOTE | 2024-04-05 14:06 | STRESSREP ---
Stress Test Report Pharmacologic myocardial perfusion stress test. 78-year-old lady with a history of chest pain Resting EKG demonstrates sinus bradycardia with a right bundle branch block with a rate of 50 bpm. Resting blood pressure is 128/70 mmHg. 0.4 mg of regadenoson was infused per usual protocol followed by rapid intravenous saline flush injection. Continuous EKG monitoring was performed. The maximum heart rate was 78 bpm which was 55% of max impacted heart rate the maximum workload was 1 metabolic equivalent. At rest there were no ST or T wave changes noted to suggest ischemia and at peak infusion nonspecific ST changes were noted which did not meet the criteria for ischemia. No clinical angina is noted. The final blood pressure was 120/80 mmHg. Myocardial perfusion protocol. 11.9 mCi of technetium 99m sestamibi was injected at rest. 0.4 mg of regadenoson was infused per usual protocol. At peak infusion 34.5 mCi of technetium 99m sestamibi was injected stress images were obtained stress and rest images were reconstructed and compared in the short axis vertical long and horizontal long axis. Gated images were also obtained. Perfusion SPECT analysis: Review of the stress images demonstrate normal uptake of tracer noted in all areas of the myocardium. The resting images similar demonstrated normal uptake of tracer noted in all areas of the myocardium. No areas of reversibility are noted to suggest ischemia and no previous infarct is noted. Gated SPECT analysis: The gated ejection fraction is 83%. Conclusion: Normal pharmacologic myocardial perfusion stress test. Preserved ejection fraction.
== END | disposition home or self-care (01) ==
LOC: CVS 06:52
PROVIDERS: PCP Student in an Organized Health Care Education/Training Program; Referring Provider Physician Assistant Medical; Visit Provider Physician Assistant Medical
DX: R07.9 Chest pain, unspecified (principal); Z95.1 Presence of aortocoronary bypass graft; Z95.5 Presence of coronary angioplasty implant and graft
CPT/HCPCS: 78452; 93017; A9500; A4216; J2785

== ENCOUNTER → 2024-09-18 | Outpatient (CLI) | payer MEDICARE, OTHER, SELFPAY ==
[2020-12-22 10:36] VITALS: BMI 37.4
[2024-09-18 10:32] LABS: Absolute Lymphocyte Count 1.72 X10^3/uL (0.83-4.51); Absolute Neutrophil Count 3.8 X10^3/uL (2.0-7.7); Basophil# 0.03 X10^3/uL; Basophil% 0.5 % (0-1); Eosinophil# 0.13 X10^3/uL; Eosinophils% 2.1 % (0-5); Hematocrit 43.1 % (37-47); Hemoglobin 14.4 g/dL (12.0-15.0); Lymphocyte # 1.72 X10^3/ul (0.83-4.51); Lymphocyte % 27.1 % (19-41); Mean Corp Hgb Conc 33.4 g/dL (32-36); Mean Corpuscular Hgb 29.4 pg (27.0-32.0); Mean Corpuscular Volume 88.1 fL (81-99); Mean Platelet Vol. 9.8 fl (6.2-12.0); Monocyte# 0.65 X10^3/uL; Monocyte% 10.3 % (0-10); NRBC Flagged by Analyzer 0 % (0-5); Neutrophil % 59.8 % (47-70); Platelet Count 210 K/mm3 (150-450); RBC Distribution Width CV 14.4 % (11.6-14.6); RBC Distribution Width SD 46.5 fl (35.1-43.9); Red Blood Count 4.89 M/mm3 (4.2-5.4); White Blood Count 6.3 K/mm3 (4.4-11.0)
[2024-09-18 13:04] LABS: Hemoglobin A1c 6.1 % (<=5.6)
[2024-09-18 13:05] LABS: ALB/GLOB Ratio 1.3 RATIO (0.9-2.4); AST(SGOT) 29 U/L (<=31); Alanine Aminotransfer ALT/SGPT 28 U/L (<=34); Alkaline Phosphatase 66 U/L (35-104); Anion Gap 14 (5-15); BUN 25 mg/dL (4-19); BUN/Creat Ratio 19.8 RATIO (10-20); Calcium,Total 9.6 mg/dL (7.6-11.0); Carbon Dioxide 24.1 mmol/L (21.0-32.0); Chloride 99 mmol/L (98-108); Cholesterol 130 mg/dL (<=200); Creatinine, Serum 1.26 mg/dL (0.70-1.20); EST Glomerular Filtration Rate 43 (>60); Globulin 3.2 g/dL (2.2-4.2); Glucose 97 mg/dL (70-99); High Density Lipoprotein 35 mg/dL; Low Density Lipoprotein Calc. 57 mg/dL; Potassium 4.1 mmol/L (3.3-5.1); Protein, Total 7.3 g/dL (5.9-8.4); Sodium Level 137 mmol/L (133-145); Total Bilirubin 0.46 mg/dL (0.00-1.30); Triglycerides 193 mg/dL; Very Low Density Lipoprotein 39 mg/dL (5-40); cholesterol:hdl ratio screen 3.75
[2024-09-21 13:08] LABS: Vitamin D 1,25-Dihydroxy 30.7 pg/mL (24.8-81.5)
== END | disposition home or self-care (01) ==
LOC: LAB 09:15
PROVIDERS: PCP Student in an Organized Health Care Education/Training Program; Referring Provider Physician Assistant Medical; Visit Provider Physician Assistant Medical
DX: I10 Essential (primary) hypertension (principal); R53.83 Other fatigue; R73.09 Other abnormal glucose
CPT/HCPCS: 36415; 80053; 80061; 82652; 83036; 84443; 85025

== ENCOUNTER → 2025-01-12 | Outpatient (CLI) | payer MEDICARE, OTHER, SELFPAY ==
[2020-12-22 10:36] VITALS: BMI 37.4
--- NOTE | 2025-01-12 14:40 | RAD_ITS ---
PROCEDURE: SHOULDER MIN 2 VIEWS 01/12/2025 REASON FOR EXAM: RIGHT SHOULDER PAIN TECHNIQUE: SHOULDER MIN 2 VIEWS COMPARISON: None. FINDINGS: No evidence of acute fracture or dislocation. Severe acromioclavicular and glenohumeral degenerative changes. Humeral head anchors. RAD/Shoulder min 2 Views IMPRESSION: Severe osteoarthrosis. Reading Location: [id number]
== END | disposition home or self-care (01) ==
LOC: RAD 14:26
PROVIDERS: PCP Student in an Organized Health Care Education/Training Program; Referring Provider Anesthesiology Pain Medicine; Visit Provider Anesthesiology Pain Medicine
DX: M25.511 Pain in right shoulder (principal)
CPT/HCPCS: 73030

== ENCOUNTER → 2025-02-22 | Outpatient (CLI) | payer MEDICARE, OTHER, SELFPAY ==
[2020-12-22 10:36] VITALS: BMI 37.4
--- NOTE | 2025-02-22 09:17 | BD_ITS ---
PROCEDURE: DEXA BONE DENSITY STUDY 02/22/2025 REASON FOR EXAM: F, age 79 y/o . Postmenopausal. TECHNIQUE: Procedure Code: BDDBD Modality: DX Procedure: DEXA BONE DENSITY STUDY COMPARISON: Prior study dated June 20, 2021. FINDINGS: BMD and T-SCORES Left femoral neck: 0.813 g/cm2, T-score -0.3 Femoral neck comparison data not recommended for monitoring change. Left total hip: 0.958 g/cm2, T-score 0.1 Change from prior: Loss of 2.3%. Right femoral neck: 0.773 g/cm2, T-score -0.7 Femoral neck comparison data not recommended for monitoring change. Right total hip: 1.016 g/cm2, T-score 0.6 Change from prior: Improvement of 2%. The World Health Organization has defined the following categories based on bone density: Normal bone density: T-score equal to or greater than -1.0 Osteopenia: T-score between -1.0 and -2.5 Osteoporosis: T-score equal to or less than -2.5 FRAX (or Comparable) Fracture Risk Assessment: 10 Year Probability of Fracture: Major Osteoporotic Fracture: 22% Hip Fracture: 3.7% (Note: FRAX is not to be reported in setting of normal range bone density, osteoporosis on DEXA, known history of osteoporosis, prior osteoporotic hip or vertebral fracture, or for any patient undergoing pharmacological treatment for bone loss.) The National Osteoporosis Foundation (NOF) recommends pharmacological treatment for patients with a FRAX 10-year risk of 3% or higher for a hip fracture, or 20% or higher for a major osteoporotic fracture, to prevent osteoporosis and reduce fracture risk. The patient does meet the pharmacological treatment recommendations for prevention of osteoporosis. BD/Dexa Bone Density Study IMPRESSION: NORMAL T-SCORES. Recommend follow-up as clinically warranted. Reading Location: [place] [id number]
== END | disposition home or self-care (01) ==
LOC: OPBD 09:12
PROVIDERS: PCP Student in an Organized Health Care Education/Training Program; Referring Provider Student in an Organized Health Care Education/Training Program; Visit Provider Student in an Organized Health Care Education/Training Program
DX: M81.0 Age-related osteoporosis without current pathological fracture (principal)
CPT/HCPCS: 77080

== ENCOUNTER → 2025-05-09 | Outpatient (CLI) | payer MEDICARE, OTHER, SELFPAY ==
[2020-12-22 10:36] VITALS: BMI 37.4
[2025-05-09 12:21] LABS: AST(SGOT) 29 U/L (<=31); Alanine Aminotransfer ALT/SGPT 27 U/L (<=34); Albumin, Serum 4.1 g/dL (3.4-4.8); Alkaline Phosphatase 70 U/L (35-104); Anion Gap 12 (5-15); BUN 25 mg/dL (4-19); BUN/Creat Ratio 21.8 RATIO (10-20); Calcium,Total 9.6 mg/dL (7.6-11.0); Carbon Dioxide 26.1 mmol/L (21.0-32.0); Chloride 100 mmol/L (98-108); Cholesterol 129 mg/dL (<=200); Globulin 3.1 g/dL (2.2-4.2); Glucose 101 mg/dL (70-99); Low Density Lipoprotein Calc. 60 mg/dL; Potassium 4.5 mmol/L (3.3-5.1); Triglycerides 194 mg/dL; Very Low Density Lipoprotein 39 mg/dL (5-40); cholesterol:hdl ratio screen 3.54
== END | disposition home or self-care (01) ==
LOC: LAB 09:39
PROVIDERS: PCP Student in an Organized Health Care Education/Training Program; Referring Provider Physician Assistant Medical; Visit Provider Physician Assistant Medical
DX: E78.00 Pure hypercholesterolemia, unspecified (principal); Z95.1 Presence of aortocoronary bypass graft; Z95.5 Presence of coronary angioplasty implant and graft
CPT/HCPCS: 36415; 80053; 80061